=== PATIENT | male | born 1945 | race Caucasian/White ===

== ENCOUNTER 2022-06-14 15:56 | Inpatient (IN) | payer MEDICARE, OTHER ==
[~2022-06-14] VITALS: Ht 167.6 cm; Wt 69.4 kg
--- NOTE | 2022-06-14 16:15 | NUR ---
BIBRA 860 FROM HOME C/O GENERALIZED ABDOMINAL PAIN AND DIARRHEA X 2 WEEKS
--- NOTE | 2022-06-14 17:02 | NUR ---
ESTABLISHED IV LINE 20 G LEFT AC
--- NOTE | 2022-06-14 17:03 | NUR ---
BLOOD SAMPLE OBTAINED
[2022-06-14 17:09] LABS: BASOPHILS % (AUTO) 0.7 % (0.0-2.0); EOSINOPHILS % (AUTO) 0.2 % (0.0-6.0); HEMATOCRIT 43 % (39-51); HEMOGLOBIN 14.1 g/dL (13.5-17.5); LYMPHOCYTES # (AUTO) 1.1 K/uL (0.8-4.8); LYMPHOCYTES % (AUTO) 22.7 % (20.0-44.0); MEAN CORPUSCULAR HGB CONC 33 g/dl (31.0-36.0); MEAN CORPUSCULAR VOLUME 82 fL (80-96); MONOCYTES # (AUTO) 0.6 K/uL (0.1-1.30); MONOCYTES % (AUTO) 11.7 % (2.0-12.0); NEUTROPHILS # (AUTO) 3.1 K/uL (1.8-8.9); NEUTROPHILS % (AUTO) 64.7 % (43.0-81.0); PLATELET COUNT (AUTO) 268 K/uL (150-450); RED BLOOD CELL COUNT(AUTO) 5.19 MIL/uL (4.5-6.0); WHITE BLOOD COUNT (AUTO) 4.8 K/uL (4.3-11.0)
[2022-06-14 17:25] LABS: POTASSIUM 3.9 mmol/L (3.5-5.1)
[2022-06-14 17:29] LABS: ALBUMIN 2.2 g/dL (3.4-5.0); BILIRUBIN,DIRECT 0.2 mg/dL (0.0-0.2); BILIRUBIN,TOTAL 0.7 mg/dL (0.2-1.0); TOTAL PROTEIN, SERUM 6.1 g/dL (6.4-8.2)
[2022-06-14] MEDS ORDERED: IV NS 0.9% 1,000 ML BAG IV ONE (17:30)
[2022-06-14] MEDS ORDERED: IV NS 0.9% 250 ML IV ONE (17:33)
[2022-06-14] MEDS ORDERED: IOHEXOL-300 100 ML VIAL IV ONE (17:33)
[2022-06-14] MEDS ORDERED: ACETAMINOPHEN ES 500 MG TABLET ONE (17:40)
[2022-06-14] MEDS ORDERED: ACETAMINOPHEN ES 500 MG TABLET PO ONE (18:00)
--- NOTE | 2022-06-14 18:23 | NUR ---
SHARMIN [phone] SON
--- NOTE | 2022-06-14 18:42 | NUR ---
COVID SWAB TAKEN SENT TO LAB
--- NOTE | 2022-06-14 19:43 | NUR ---
URINE COLLECTED AND SENT TO LAB
[2022-06-14] MEDS ORDERED: ACETAMINOPHEN 325 MG TABLET PO PRN (20:00)
[2022-06-14] MEDS ORDERED: ENOXAPARIN SODIUM 40 MG/0.4 ML DISP.SYRIN SQ ONE (20:05)
[2022-06-14] MEDS ORDERED: DOCUSATE SODIUM 100 MG CAPSULE PO ONE (20:05)
[2022-06-14] MEDS: DOCUSATE SODIUM 100 MG CAPSULE PO SCH (20:13)
[2022-06-14] MEDS: ENOXAPARIN SODIUM 40 MG/0.4 ML DISP.SYRIN SQ SCH (20:15)
--- NOTE | 2022-06-14 20:23 | NUR ---
REPORT GIVEN TO NAZANIN CARTER ROOM 307-2 FOR JIMMIE
[2022-06-14 20:30] VITALS: BP 101/62
--- NOTE | 2022-06-14 20:30 | NUR ---
PT TRANSFERRED TO [facility]-2 VIA ACLS PROTOCOL. VSS.
--- NOTE | 2022-06-14 20:48 | NUR ---
RN NOTES; RECEIVED PT FROM ER WITH REYES ABARCA MOSOTHO SPEAKING WITH A LITTLE STATELESS.RAFFI WELL ON RM AIR SATING 99%,NO SIGN SOB/DISTRESS NOTED,NO COMPLAINED OF PAIN/DISCOMFORT AT THIS TIME,IV ACCES ON LAC 20G INTACT AND PATENT,AMBULATORY WITH STEADY GAIT,PT WAS ORIENT THE RM AND VERBALLY RESPONSIVE,SAFETY MEASURED IN PLACE,BED LOW AND LOCKED POSITION,CALL LIGHT WITHIN REACH,WILL CONTINUE TO MONITOR.
[2022-06-14 20:53] LABS: BILIRUBIN,URINE NEGATIVE (NEGATIVE); COLOR,URINE YELLOW (YELLOW); LEUKOCYTE ESTERASE ,URINE NEGATIVE (NEGATIVE); NITRITE, URINE NEGATIVE (NEGATIVE); PROTEIN,URINE NEGATIVE (NEGATIVE); UGLUCOSE NEGATIVE (NEGATIVE)
[2022-06-14 20:58] LABS: BACTERIA,URINE None seen /HPF (None Seen); RBC,URINE 0-2 /HPF (0-2); SQUAMOUS EPITHELIAL CELL,UR 0-2 /HPF (None Seen); WBC,URINE 0-2 /HPF (0-3)
[2022-06-14 21:30] LABS: PROSTATE SPECIFIC ANTIGEN SCR 0.97 ng/mL (0.00-4.00)
[2022-06-14] MEDS: IV NS 0.9% 1,000 ML IV PRN (21:46)
[2022-06-14] MEDS: ONDANSETRON HCL/PF 4 MG/2 ML VIAL IVP PRN (22:17)
--- NOTE | 2022-06-15 06:17 | NUR ---
RN CLOSING NOTES; PATIENT IN BED AWAKED AOX3 MARTINIQUAIS SPEAKING WITH A LITTLE SAMI.ABLE TO MAKE NEEDS KNOWN,RAFFI WELL ON RM AIR SATING 98%,NO SIGN SOB/DISTRESS NOTED,NO COMPLAINED OF PAIN/DISCOMFORT DURING SHIFT,DUE MEDS GIVEN ORDER,ALL NEEDS ATTENDED,IV ACCES ON LAC 20G WITH NS 75ML/HR INFUSING WELL,AMBULATORY WITH STEADY GAIT,SAFETY MEASURED IN PLACE,BED LOW AND LOCKED POSITION,CALL LIGHT WITHIN REACH,WILL ENDORSED TO NEXT SHIFT.
[2022-06-15 07:00] VITALS: BP 118/85
[2022-06-15 07:26] LABS: BASOPHILS % (AUTO) 0.3 % (0.0-2.0); EOSINOPHILS % (AUTO) 0.2 % (0.0-6.0); HEMATOCRIT 39 % (39-51); HEMOGLOBIN 12.9 g/dL (13.5-17.5); LYMPHOCYTES % (AUTO) 22.7 % (20.0-44.0); MEAN CORPUSCULAR HGB CONC 33 g/dl (31.0-36.0); MEAN CORPUSCULAR VOLUME 83 fL (80-96); MONOCYTES # (AUTO) 0.8 K/uL (0.1-1.30); NEUTROPHILS # (AUTO) 2.7 K/uL (1.8-8.9); NEUTROPHILS % (AUTO) 59.8 % (43.0-81.0); PLATELET COUNT (AUTO) 261 K/uL (150-450); RED BLOOD CELL COUNT(AUTO) 4.68 MIL/uL (4.5-6.0); WHITE BLOOD COUNT (AUTO) 4.6 K/uL (4.3-11.0)
--- NOTE | 2022-06-15 07:27 | NUR ---
MS RN OPENING NOTE RECEIVED PT AWAKE AND RESTING IN BED. PT IS A/O X4, ABLE TO MAKE NEEDS KNOWN. PT ON ROOM AIR, TOLERATING WELL. NO SOB NOTED. NOT IN ANY SIGN OF RESPIRATORY DISTRESS. IV ACCESS ON LAC G#20 INTACT AND PATENT WITH NS INFUSING AT 75ML/HR. SAFETY MEASURES IN PLACE: BED IN LOWEST AND LOCKED POSITION, SIDE RAILS UPX2, AND CALL LIGHT WITHIN REACH. WILL CONTINUE PT WITH PLAN OF CARE.
[2022-06-15 08:07] LABS: CALCIUM, SERUM 7.6 mg/dL (8.5-10.1); CREATININE 0.9 mg/dL (0.6-1.3); MAGNESIUM 2.1 mg/dL (1.8-2.4); PHOSPHORUS 3.5 mg/dL (2.5-4.9); POTASSIUM 3.5 mmol/L (3.5-5.1)
[2022-06-15] MEDS: PANTOPRAZOLE 40 MG TABLET.DR PO SCH (08:23)
[2022-06-15] MEDS: DOCUSATE SODIUM 100 MG CAPSULE PO SCH ×2 (09:06→17:27)
[2022-06-15] MEDS ORDERED: PEG 3350/NA SULF,BICARB,CL/KCL 4,000 ML BOTTLE PO ONE (11:00)
[2022-06-15] MEDS: ONDANSETRON HCL/PF 4 MG/2 ML VIAL IVP PRN ×2 (12:12→21:23)
--- NOTE | 2022-06-15 12:14 | NUR ---
RN NOTE PT C/O NAUSEA AND VOMITING. PT NOTED WITH X1 VOMITING AND REQUESTED FOR MEDICATION. ZOFRAN 4MG IVP ADMINISTERED ORDERED Q6HRS PRN FOR NAUSEA AND VOMITING. WILL MONITOR AND REASSESS PT.
[2022-06-15] MEDS ORDERED: TAMS-12 PO (13:26)
[2022-06-15] MEDS ORDERED: METO25TA4 PO (13:26)
[2022-06-15] MEDS ORDERED: OMEP1CAP25 PO (13:26)
[2022-06-15] MEDS ORDERED: ROSU10TA29 PO (13:26)
[2022-06-15] MEDS ORDERED: LORA-258 PO (13:26)
[2022-06-15] MEDS ORDERED: DICL100G34 TP (13:26)
[2022-06-15] MEDS ORDERED: DULO20CA19 PO (13:26)
[2022-06-15] MEDS ORDERED: OMEG-72 PO (13:26)
[2022-06-15] MEDS ORDERED: GABA300C PO (13:26)
[2022-06-15] MEDS ORDERED: AMLO1CAP6 PO (13:26)
[2022-06-15] MEDS ORDERED: CELE-85 PO (13:26)
[2022-06-15] MEDS ORDERED: TEMA30CA PO (13:26)
[2022-06-15] MEDS ORDERED: RIVA1PAT11 TP (13:26)
[2022-06-15] MEDS ORDERED: DONE23TA3 PO (13:26)
[2022-06-15] MEDS ORDERED: MECL-173 PO (13:27)
--- NOTE | 2022-06-15 13:30 | NUR ---
SS note: Per family's request SW provided pt. and family with advanced healthcare directive and mobile notary number and explained how to complete . Pt. and family are agreeable.
[2022-06-15] MEDS ORDERED: DICLOFENAC TOPICAL 100 GM TUBE TP PRN (14:00)
[2022-06-15] MEDS ORDERED: LORAZEPAM 0.5 MG TABLET PO PRN (14:00)
[2022-06-15] MEDS ORDERED: MECLIZINE HCL 25 MG TABLET PO PRN (14:00)
[2022-06-15] MEDS ORDERED: TEMAZEPAM 15 MG CAPSULE PO PRN (14:30)
[2022-06-15 15:14] LABS: BAND % (MANUAL) 14 % (0.0-5.0); LYMPHOCYTES % (MANUAL) 19 % (16-48); MONOCYTES % (MANUAL) 14 % (0-11.0); NEUTROPHILS % (MANUAL) 53 (42-76)
[2022-06-15] MEDS: IV NS 0.9% 1,000 ML IV PRN (15:42)
[2022-06-15 17:00] VITALS: BP 132/73
[2022-06-15] MEDS ORDERED: Medication Not On Formulary EA (Omega-3 Acid Ethyl Esters 1 GM) PO SCH (17:00)
[2022-06-15] MEDS: GABAPENTIN 300 MG CAPSULE PO SCH (17:27)
--- NOTE | 2022-06-15 18:50 | NUR ---
MS RN CLOSING NOTE PT AWAKE AND RESTING IN BED. PT IS A/O X4, ABLE TO MAKE NEEDS KNOWN. PT ON ROOM AIR, TOLERATING WELL. NO SOB NOTED. NOT IN ANY SIGN OF RESPIRATORY DISTRESS. IV ACCESS ON LAC G#20 INTACT AND PATENT WITH NS INFUSING AT 75ML/HR. ALL NEEDS ATTENDED. KEPT CLEAN AND COMFORTABLE AT ALL TIMES. SAFETY MEASURES IN PLACE: BED IN LOWEST AND LOCKED POSITION, SIDE RAILS UPX2, AND CALL LIGHT WITHIN REACH. WILL ENDORSE TO EQUIPMENT SERVICE ASSOCIATE NURSE FOR JIMMIE.
--- NOTE | 2022-06-15 19:55 | NUR ---
MS RN OPENING NOTE PATIENT AWAKE IN BED, ALERT/ORIENTED X 4, PT ABLE TO MAKE NEEDS KNOWN. PATIENT STABLE ON RA, NO S/S OF DISTRESS OR SOB NOTED, BREATHING EVEN AND UNLABORED. IV ACCESS ON LAC #20G INTACT AND INFUSING NS @ 75 ML/HR. PATIENT TO HAVE COLONOSCOPY/ENDOSCOPY IN AM, ENCOURAGED PATIENT TO CONTINUE DRINKING GROLYTELY, PER DAYSHIFT RN PATIENT HAD 2 BOWEL MOVEMENTS ALREADY. PATIENT TO BE NPO POST MIDNIGHT FOR COLONOSCOPY AND ENDOSCOPY TOMORROW. PATIENT AMBULATORY WITH BRP. SAFETY MEASURES IN PLACE: CALL LIGHT WITHIN REACH, SIDE RAILS UP X 2, BED LOCKED IN LOWEST POSITION, HOB ELEVATED. WILL CONTINUE TO MONITOR PATIENT
[2022-06-15 20:26] VITALS: BP 138/73
--- NOTE | 2022-06-15 20:56 | NUR ---
MS RN NOTE USED ACUTE COORDINATOR (ID: [id number]) TO SPEAK TO PATIENT. EXPLAINED THAT HE NEEDS TO DRINK MUCH THE GOLYTELY POSSIBLE BEFORE MIDNIGHT UNTIL BOWELS CLEAR, PER PATIENT ALREADY HAVING CLEAR BOWELS, HASN'T EATEN ANYTHING BUT FLUIDS THE LAST COUPLE OF DAYS. PATIENT STATES HE WILL CONTINUE TO DRINK GOLYTELY MUCH POSSIBLE UNTIL MIDNIGHT BUT STATES HE HAS NAUSEA, OFFERED ZOFRAN. ALSO EXPLAINED TO PATIENT THAT HE MUST BE NPO POST MIDNIGHT. PATIENT VERBALIZED UNDERSTANDING. WILL CONTINUE TO MONITOR PATIENT
[2022-06-15] MEDS: ENOXAPARIN SODIUM 40 MG/0.4 ML DISP.SYRIN SQ SCH (21:00)
[2022-06-15] MEDS: ATORVASTATIN 40 MG TABLET PO SCH (21:23)
[2022-06-16 06:15] LABS: BASOPHILS % (AUTO) 0.1 % (0.0-2.0); EOSINOPHILS % (AUTO) 0.2 % (0.0-6.0); HEMATOCRIT 42 % (39-51); HEMOGLOBIN 13.9 g/dL (13.5-17.5); LYMPHOCYTES # (AUTO) 0.8 K/uL (0.8-4.8); LYMPHOCYTES % (AUTO) 18.7 % (20.0-44.0); MEAN CORPUSCULAR HGB CONC 33 g/dl (31.0-36.0); MEAN CORPUSCULAR VOLUME 82 fL (80-96); MONOCYTES # (AUTO) 0.5 K/uL (0.1-1.30); NEUTROPHILS # (AUTO) 3.1 K/uL (1.8-8.9); PLATELET COUNT (AUTO) 295 K/uL (150-450); RED BLOOD CELL COUNT(AUTO) 5.12 MIL/uL (4.5-6.0); WHITE BLOOD COUNT (AUTO) 4.5 K/uL (4.3-11.0)
[2022-06-16 06:38] LABS: CALCIUM, SERUM 7.9 mg/dL (8.5-10.1); CREATININE 0.8 mg/dL (0.6-1.3); MAGNESIUM 2.3 mg/dL (1.8-2.4); PHOSPHORUS 3.2 mg/dL (2.5-4.9)
--- NOTE | 2022-06-16 06:43 | NUR ---
MS RN CLOSING NOTE PATIENT SLEEPING IN BED, ALERT/ORIENTED X 4, PT PRIMARILY NORTH KOREAN SPEAKING PATIENT STABLE ON RA, NO S/S OF DISTRESS OR SOB NOTED, BREATHING EVEN AND UNLABORED. IV ACCESS ON LAC #20G INTACT AND INFUSING NS @ 75 ML/HR. PATIENT TO HAVE COLONOSCOPY/ENDOSCOPY TODAY, PATIENT KEPT NPO POST MIDNIGHT. PATIENT DRANK MOST OF GOLYTELY, STATES HE IS HAVING WATERY, CLEAR BOWEL MOVEMENTS "LIKE WATER". NO SIGNIFICANT CHANGES THIS SHIFT, MEDICATIONS GIVEN ORDERED, PT NEEDS MET THROUGHOUT SHIFT. PATIENT AMBULATORY WITH BRP. SAFETY MEASURES IN PLACE: CALL LIGHT WITHIN REACH, SIDE RAILS UP X 2, BED LOCKED IN LOWEST POSITION, HOB ELEVATED. WILL ENDORSE TO DAYSHIFT RN FOR CONTINUITY OF CARE
[2022-06-16] MEDS: PANTOPRAZOLE 40 MG TABLET.DR PO SCH ×2 (07:30→08:34)
--- NOTE | 2022-06-16 07:35 | NUR ---
MS RN OPENING NOTE RECEIVED PT AWAKE AND RESTING IN BED. PT IS A/O X4, CITIZEN OF [place] AND [place] SPEAKING , ABLE TO MAKE NEEDS KNOWN. PT ON ROOM AIR, TOLERATING WELL. NO SOB NOTED. NOT IN ANY SIGN OF RESPIRATORY DISTRESS. IV ACCESS ON LAC G#20 INTACT AND PATENT WITH NS INFUSING AT 75ML/HR. SAFETY MEASURES IN PLACE: BED IN LOWEST AND LOCKED POSITION, SIDE RAILS UPX2, AND CALL LIGHT WITHIN REACH. WILL CONTINUE PT WITH PLAN OF CARE.
[2022-06-16 08:00] VITALS: BP 123/69
[2022-06-16] MEDS ORDERED: PANTOPRAZOLE 40 MG/PACK PACK PO SCH (09:00)
[2022-06-16] MEDS: AMLODIPINE BESYLATE 5 MG TABLET PO SCH ×2 (09:00→09:05)
[2022-06-16] MEDS: CELECOXIB 100 MG CAPSULE PO SCH ×2 (09:00→09:04)
[2022-06-16] MEDS: BENAZEPRIL HCL 20 MG TABLET PO SCH ×2 (09:00→09:05)
[2022-06-16] MEDS: GABAPENTIN 300 MG CAPSULE PO SCH ×3 (09:00→17:00)
[2022-06-16] MEDS: TAMSULOSIN 0.4 MG CAP.SR.24H PO SCH ×2 (09:00→09:02)
[2022-06-16] MEDS: DULOXETINE HCL 20 MG CAPSULE.DR PO SCH ×2 (09:00→09:03)
[2022-06-16] MEDS: METOPROLOL SUCCINATE 25 MG TAB.SR.24H PO SCH ×2 (09:00→09:06)
[2022-06-16] MEDS: DOCUSATE SODIUM 100 MG CAPSULE PO SCH ×3 (09:00→17:00)
[2022-06-16] MEDS: RIVASTIGMINE TARTRATE 4.6 MG PATCH.TD24 TD SCH (09:36)
[2022-06-16] MEDS: POTASSIUM CL. PREMIX PERIPHER. 50 ML IV SCH ×4 (10:41→14:06)
[2022-06-16] MEDS: IV NS 0.9% 1,000 ML IV PRN (11:28)
[2022-06-16 16:14] VITALS: BP 136/74
--- NOTE | 2022-06-16 18:30 | NUR ---
MS RN CLOSING NOTE PT AWAKE AND RESTING IN BED. PT IS A/O X4, GERMAN SPEAKING , ABLE TO MAKE NEEDS KNOWN. PT ON ROOM AIR, TOLERATING WELL. NO SOB NOTED. NOT IN ANY SIGN OF RESPIRATORY DISTRESS. IV ACCESS ON LAC G#20 INTACT AND PATENT WITH NS INFUSING AT 75ML/HR. NOTED WITH LOW POTASSIUM AND REPLACED WITH 40 MEQ VIA IV , NPO TIL PROCEDURE WAS DONE , PATIENT WAS TERRITORY SALES PROFESSIONAL AROUND 1730 FOR COLONOSCOPY AND ENDOSCOPY , STILL AT SURGERY AT THIS TIME SAFETY MEASURES IN PLACE: BED IN LOWEST AND LOCKED POSITION, SIDE RAILS UPX2, AND CALL LIGHT WITHIN REACH. WILL ENDORSED TO NEXT SHIFT
[2022-06-16] MEDS ORDERED: ONDANSETRON HCL/PF 4 MG/2 ML VIAL ONE (18:31)
--- NOTE | 2022-06-16 19:45 | NUR ---
MS RN OPENING NOTE PATIENT ARRIVED FROM COLONOSCOPY AND ENDOSCOPY AT ABOUT 1900. PATIENT AWAKE IN BED WITH FAMILY AT BEDSIDE, ALERT/ORIENTED X 4, PT JAMAICAN SPEAKING. PATIENT STABLE ON 2 LPM OF O2 VIA NASAL CANNULA, NO S/S OF DISTRESS OR SOB NOTED, BREATHING EVEN AND UNLABORED. PATIENT WITH NAUSEA AND SOME VOMITING BUT WAS GIVEN ZOFRAN IN PACU AT 1835. PATIENT ABLE TO AMBULATE TO BATHROOM. IV ACCESS ON LEFT WRIST #22G INTACT AND INFUSING NS @ 75 ML/HR. FAMILY WAS REQUESTING TO SPEAK TO DR. HEREDIA BUT NOT PRESENT ON FLOOR, BUSINESS CARD GIVEN TO FAMILY. SAFETY MEASURES IN PLACE: CALL LIGHT WITHIN REACH, SIDE RAILS UP X 2, BED LOCKED IN LOWEST POSITION, HOB ELEVATED. BED ALARM ON. WILL CONTINUE TO MONITOR PATIENT
[2022-06-16] MEDS ORDERED: ANESTHESIA TRAY IN PYXIS 1 EA TRAY MC ONE (19:46)
--- NOTE | 2022-06-16 19:47 | NUR ---
MS RN NOTE PER KEISHA BOSCH, KEEP PATIENT ON CLEAR LIQUIDS AND ORDER ECHO. DR. CORDERO ALSO CALLED TO REQUEST FACESHEET BE SENT TO HIM, STATED PATIENT WILL NEED SURGERY BUT UNSURE WHEN IT WILL BE. FACESHEET SENT TO DR. CORDERO
[2022-06-16 20:00] VITALS: BP 172/89
[2022-06-16 21:00] VITALS: BP 134/72
--- NOTE | 2022-06-16 21:10 | NUR ---
MS RN NOTE REASSESSED PATIENT'S BP, BP NOW 134/72, HR: 103. WILL CONTINUE TO MONITOR
[2022-06-16] MEDS: ATORVASTATIN 40 MG TABLET PO SCH (21:42)
[2022-06-16] MEDS: DONEPEZIL 5 MG TABLET PO SCH (21:43)
[2022-06-16] MEDS: ENOXAPARIN SODIUM 40 MG/0.4 ML DISP.SYRIN SQ SCH (21:56)
[2022-06-17] MEDS: IV NS 0.9% 1,000 ML IV PRN (02:20)
[2022-06-17] MEDS: ONDANSETRON HCL/PF 4 MG/2 ML VIAL IVP PRN (02:20)
--- NOTE | 2022-06-17 05:56 | NUR ---
MS RN NOTE PATIENT C/O 10/04 ABDOMINAL PAIN, ONLY HAS ORDER FOR TYLENOL. NOTIFIED COMMUNITY ORGANIZER MD FOR STRONGER PAIN MEDICATION. AWAITING ORDERS
[2022-06-17 06:10] LABS: BASOPHILS % (AUTO) 0.1 % (0.0-2.0); EOSINOPHILS % (AUTO) 0.3 % (0.0-6.0); HEMATOCRIT 42 % (39-51); LYMPHOCYTES % (AUTO) 18.7 % (20.0-44.0); MEAN CORPUSCULAR HGB CONC 33 g/dl (31.0-36.0); MEAN CORPUSCULAR VOLUME 82 fL (80-96); MONOCYTES # (AUTO) 0.8 K/uL (0.1-1.30); MONOCYTES % (AUTO) 15.5 % (2.0-12.0); NEUTROPHILS # (AUTO) 3.6 K/uL (1.8-8.9); NEUTROPHILS % (AUTO) 65.4 % (43.0-81.0); PLATELET COUNT (AUTO) 334 K/uL (150-450); WHITE BLOOD COUNT (AUTO) 5.5 K/uL (4.3-11.0)
[2022-06-17 06:23] LABS: CALCIUM, SERUM 7.4 mg/dL (8.5-10.1); CREATININE 0.8 mg/dL (0.6-1.3); MAGNESIUM 2.4 mg/dL (1.8-2.4); PHOSPHORUS 2.7 mg/dL (2.5-4.9); POTASSIUM 3.3 mmol/L (3.5-5.1)
[2022-06-17 06:37] LABS: FERRITIN 234 ng/mL (8-388)
--- NOTE | 2022-06-17 06:56 | NUR ---
MS RN CLOSING NOTES PATIENT AWAKE IN BED, ALERT/ORIENTED X 4, PT EGYPTIAN SPEAKING. PATIENT STABLE ON RA, NO S/S OF DISTRESS OR SOB NOTED, BREATHING EVEN AND UNLABORED. PATIENT C/O OF ABDOMINAL PAIN, NOTIFIED TERRITORY ACCOUNT EXECUTIVE MD FOR PAIN MEDICATION, AWAITING MD ORDER, WILL ENDORSE TO DAYSHIFT RN. PATIENT ABLE TO AMBULATE TO BATHROOM. IV ACCESS ON LEFT WRIST #22G INTACT AND INFUSING NS @ 75 ML/HR. PATIENT C/O OF NAUSEA AND SOME VOMITING THIS SHIFT, ZOFRAN GIVEN. MEDICATIONS GIVEN ORDERED, PT NEEDS MET THROUGHOUT SHIFT. SAFETY MEASURES IN PLACE: CALL LIGHT WITHIN REACH, SIDE RAILS UP X 2, BED LOCKED IN LOWEST POSITION, HOB ELEVATED. WILL ENDORSE TO DAYSHIFT RN FOR CONTINUITY OF CARE
--- NOTE | 2022-06-17 07:00 | NUR ---
MS RN OPENING NOTES: RECEIVED PATIENT IN BED, AWAKE BELIZEAN SPEAKING BUT ABLE TO UNDERSTAND TANZANIAN. PT ALERT AND ORIENTED X 4 ABLE TO MAKE NEEDS KNOWN. ON O2 INHALATION @ 2LPM VIA NC STAND BY. PT COMPLAINING OF GAS PAIN, WAITING FOR DR'S ORDER. IV ACCESS ON L WRIST GAUGE 22 PATENT, INTACT AND INFUSING NS @75ML/HR. SAFETY MEASURES MAINTAINED: BED LOCKED AND IN LOWEST POSITION, SIDE RAILS UP X 2 AND WILL MONITOR PT ACCORDINGLY.
[2022-06-17 07:38] LABS: IRON, SERUM 28 ug/dl (50-175); TOTAL IRON BINDING CAPACITY 135 ug/dl (250-450)
[2022-06-17] MEDS: PANTOPRAZOLE 40 MG TABLET.DR PO SCH (07:40)
[2022-06-17 08:00] VITALS: BP 156/84
[2022-06-17] MEDS: GABAPENTIN 300 MG CAPSULE PO SCH ×2 (08:20→16:35)
[2022-06-17] MEDS: TAMSULOSIN 0.4 MG CAP.SR.24H PO SCH (08:20)
[2022-06-17] MEDS: CELECOXIB 100 MG CAPSULE PO SCH (08:20)
[2022-06-17] MEDS: DULOXETINE HCL 20 MG CAPSULE.DR PO SCH (08:21)
[2022-06-17] MEDS: DOCUSATE SODIUM 100 MG CAPSULE PO SCH ×2 (08:21→16:35)
[2022-06-17] MEDS: BENAZEPRIL HCL 20 MG TABLET PO SCH (08:21)
[2022-06-17] MEDS: METOPROLOL SUCCINATE 25 MG TAB.SR.24H PO SCH (08:22)
[2022-06-17] MEDS: AMLODIPINE BESYLATE 5 MG TABLET PO SCH (08:22)
[2022-06-17] MEDS: RIVASTIGMINE TARTRATE 4.6 MG PATCH.TD24 TD SCH (08:22)
[2022-06-17] MEDS: POTASSIUM CL. PREMIX PERIPHER. 50 ML IV SCH ×4 (09:06→12:36)
[2022-06-17 09:38] LABS: THYROID STIMULATING HORMONE 1.27 uIU/mL (0.358-3.74)
[2022-06-17] MEDS ORDERED: PEG 3350/NA SULF,BICARB,CL/KCL 4,000 ML BOTTLE PO ONE (11:00)
--- NOTE | 2022-06-17 11:15 | NUR ---
RN NOTES: PLACING NG TUBE UNSUCCEFUL, INFORMED DR CORDERO AND DANITZA. WAITING FOR DR CORDERO IF WE CAN SWITCH GOLYTELY TO MAG CITRATE. WILL FOLLOW UP. PATIENT CURRENTLY ON NPO.
[2022-06-17 11:56] LABS: BAND % (MANUAL) 3 % (0.0-5.0); BASOPHILS % (MANUAL) 0 % (0.0-2.0); EOSINOPHILS % (MANUAL) 0 % (0-4); LYMPHOCYTES % (MANUAL) 19 % (16-48); MONOCYTES % (MANUAL) 14 % (0-11.0); NEUTROPHILS % (MANUAL) 64 (42-76)
--- NOTE | 2022-06-17 14:20 | NUR ---
RN NOTES: INSERTED NGTUBE MONTSERRATIAN 16, PATENT,INTACT AND NOTED WITH BROWNISH COLORED OUTPUT. ORDERED STAT CXR FOR PLACEMENT.
--- NOTE | 2022-06-17 15:39 | NUR ---
RN NOTES: RECEIVED A CALL FROM RN AIDE JONAS SCHEDULED FOR POSSIBLE EXPLORATORY LAPAROTOMY, POSSIBLE BOWEL RESECTION, POSSIBLE COLOSTOMY AND POSSIBLE ANASTOMOSIS, NEED TO HAVE CONSENTS SIGNED.
[2022-06-17 15:57] VITALS: BP 81/50
--- NOTE | 2022-06-17 16:00 | NUR ---
RN NOTES: PER DR BOSCH. NG TUBE ATTACH TO INTERMITTENT SUCTION @40.
[2022-06-17] MEDS ORDERED: ANESTHESIA TRAY IN PYXIS 1 EA TRAY MC ONE (16:50)
[2022-06-17] MEDS ORDERED: MIDAZOLAM HCL 2 MG/2ML VIAL ONE (17:37)
[2022-06-17] MEDS ORDERED: FENTANYL PF 100MCG/2ML AMPUL ONE (17:37)
--- NOTE | 2022-06-17 18:36 | NUR ---
RN NOTES: SEEN AND EXAMINED BY DR CORDERO AND SURGERY WILL BE POSTPONED TILL 2100. FAMILY AT BED SIDE. WILL MAINTAIN PT ON NPO.
--- NOTE | 2022-06-17 18:58 | NUR ---
MS RN CLOSING NOTES: PT ALERT AND ORINETED X 4 MONGOLIAN SPEAKING, ABLE TO UNDERSTAND LITTLE SINHALA. PT HAS NO SOB OR CARDIAC DISTRESS NOTED. DENIES DISCOMFORT AT THIS TIME. ON O2 INHALATION @ 2LPM VIA NC. NG TUBE PATENT, INTACT AND SECURED, ON INTERMITTENT SUCTION/VACUUM DRAINING DARK BROWNISH COLORED DISCHARGE. IV ACCESS ON LFA GAUGE 22 PATENT, INTACT AND RUNNING IV FLUIDS NS @75ML/HR. SAFETY MEASURES MAINTAINED: BED LOCKED AND IN LOWEST POSITION, SIDE RAILS UP X 2 . CALL LIGHT IN EASY REACH FOR HELP. WILL MONITOR PT ACCORDINGLY. ENDORSED TO HUMID SYSTEM OPERATOR NURSE FOR JIMMIE.
--- NOTE | 2022-06-17 19:35 | NUR ---
MS RN OPENING NOTES: RECEIVED PATIENT ALERT AND ORIENTED X 4 TUVALUAN SPEAKING, ABLE TO UNDERSTAND LITTLE CENTRAL AFRICAN. PATIENT HAS NO SOB OR CARDIAC DISTRESS NOTED. DENIES DISCOMFORT AT THIS TIME. ON O2 INHALATION @ 2LPM VIA NC. NG TUBE PATENT, INTACT AND SECURED, ON INTERMITTENT SUCTION/VACUUM DRAINING DARK BROWNISH COLORED DISCHARGE. IV ACCESS ON LEFT FORE ARM GAUGE #22 PATENT, INTACT AND RUNNING IV FLUIDS NS @75ML/HR. SAFETY MEASURES IN PLACED: BED LOCKED AND IN LOWEST POSITION, SIDE RAILS UP X 2 . BEDSIDE AND CALL LIGHT IN EASY REACH FOR HELP OF PATIENT.
[2022-06-17 20:00] VITALS: BP 99/63
[2022-06-17] MEDS: ENOXAPARIN SODIUM 40 MG/0.4 ML DISP.SYRIN SQ SCH (21:00)
--- NOTE | 2022-06-17 21:12 | NUR ---
RN NOTES ENOXAPARIN ON HOLD FOR SURGERY TOMORROW 06/18/22 @0750
[2022-06-17] MEDS: ATORVASTATIN 40 MG TABLET PO SCH (21:34)
[2022-06-17] MEDS: DONEPEZIL 5 MG TABLET PO SCH (21:34)
--- NOTE | 2022-06-17 21:34 | NUR ---
RN NOTE HOLD PO MEDICATIONS DONEPEZIL AND ATORVASTATIN. PATIENT IS NPO FOR SURGERY TOMORROW @0700.
[2022-06-18] VITALS (28 sets, daily range): BP systolic 81–140; BP diastolic 38–70
[2022-06-18 05:52] LABS: BASOPHILS % (AUTO) 0.1 % (0.0-2.0); EOSINOPHILS % (AUTO) 0.3 % (0.0-6.0); HEMATOCRIT 41 % (39-51); HEMOGLOBIN 13.6 g/dL (13.5-17.5); LYMPHOCYTES # (AUTO) 1.1 K/uL (0.8-4.8); LYMPHOCYTES % (AUTO) 12.1 % (20.0-44.0); MEAN CORPUSCULAR HGB CONC 33 g/dl (31.0-36.0); MEAN CORPUSCULAR VOLUME 84 fL (80-96); MONOCYTES # (AUTO) 0.7 K/uL (0.1-1.30); MONOCYTES % (AUTO) 7.9 % (2.0-12.0); NEUTROPHILS % (AUTO) 79.6 % (43.0-81.0); PLATELET COUNT (AUTO) 356 K/uL (150-450); RED BLOOD CELL COUNT(AUTO) 4.95 MIL/uL (4.5-6.0); WHITE BLOOD COUNT (AUTO) 8.8 K/uL (4.3-11.0)
[2022-06-18 06:08] LABS: CALCIUM, SERUM 7.8 mg/dL (8.5-10.1); CARBON DIOXIDE 23 mmol/L (21-32); CHLORIDE 105 mmol/L (98-107); CREATININE 2.5 mg/dL (0.6-1.3); GLUCOSE 132 mg/dL (74-106); MAGNESIUM 2.6 mg/dL (1.8-2.4); PHOSPHORUS 4.6 mg/dL (2.5-4.9); POTASSIUM 4.3 mmol/L (3.5-5.1); SODIUM SERUM 139 mmol/L (136-145); UREA NITROGEN, BLOOD 39 mg/dL (7-18)
[2022-06-18] MEDS ORDERED: ANESTHESIA TRAY IN PYXIS 1 EA TRAY MC ONE (06:31)
--- NOTE | 2022-06-18 06:38 | NUR ---
RN NOTE PATIENT LEFT UNIT FOR SURGERY IN A STABLE CONDITION. NO SOB, NOT IN DISTRESS NOTED. ALL CONSENT IS SIGNED.
[2022-06-18] MEDS ORDERED: IV NS 0.9% 1,000 ML IV PRN (07:14)
[2022-06-18] MEDS ORDERED: FENTANYL PF 250MCG/5ML AMPUL ONE (07:14)
[2022-06-18] MEDS: PANTOPRAZOLE 40 MG TABLET.DR PO SCH (07:30)
--- NOTE | 2022-06-18 07:30 | NUR ---
RN MS NOTES PT CURRENTLY IN O.R. FOR EXLAP, POSSIBLE BOWEL RESECTION, POSSIBLE COLOSTOMY, POSSIBLE ANASTOMOSIS BY DR. CORDERO.
[2022-06-18] MEDS ORDERED: ALBUMIN 5% 250 ML IV ONE ×2 (07:45)
[2022-06-18] MEDS ORDERED: BUPIVACAINE MPF 0.5% W/EPI INJ 30 ML VIAL ONE (08:54)
[2022-06-18] MEDS ORDERED: LIDOCAINE 1% INJ 50 ML MDV IJ ONE (08:55)
[2022-06-18] MEDS ORDERED: LIDOCAINE 5% OINT 35.44 GM TUBE ONE (08:55)
[2022-06-18] MEDS: AMLODIPINE BESYLATE 5 MG TABLET PO SCH (09:00)
[2022-06-18] MEDS: TAMSULOSIN 0.4 MG CAP.SR.24H PO SCH (09:00)
[2022-06-18] MEDS: METOPROLOL SUCCINATE 25 MG TAB.SR.24H PO SCH (09:00)
[2022-06-18] MEDS: FERROUS SULFATE (325 MG) 325 MG/TAB TABLET PO SCH ×2 (09:00→17:00)
[2022-06-18] MEDS: DOCUSATE SODIUM 100 MG CAPSULE PO SCH ×2 (09:00→17:00)
[2022-06-18] MEDS: GABAPENTIN 300 MG CAPSULE PO SCH ×2 (09:00→17:00)
[2022-06-18] MEDS: BENAZEPRIL HCL 20 MG TABLET PO SCH (09:00)
[2022-06-18] MEDS: DULOXETINE HCL 20 MG CAPSULE.DR PO SCH (09:00)
[2022-06-18] MEDS: RIVASTIGMINE TARTRATE 4.6 MG PATCH.TD24 TD SCH (09:00)
[2022-06-18] MEDS: CELECOXIB 100 MG CAPSULE PO SCH (09:00)
--- NOTE | 2022-06-18 09:00 | NUR ---
RN MS NOTES ALL MEDS NOT ADMINISTERED, PT STILL AT THE O.R.
[2022-06-18] MEDS ORDERED: BACITRACIN ZINC OINT PACKET 1 EA PACKET TP ONE (09:46)
--- NOTE | 2022-06-18 10:15 | NUR ---
RECEIVED PATIENT FROM OR, ACCOMPANIED BY 2 MINI LAB OPERATOR AND CAR MANAGER. PATIENT IS ON ET TUBE ON VENT SETTINGS ORDERED, TOLERATING WELL, NO SOB NOTED, NOT IN ANY DISTRESS. PATIENT RESPONSIVE TO LIGHT TOUCH. NO FACIAL GRIMACING NOTED. NOTED NGT ON RIGHT NARES HOOKED TO LOW INTERMITENT SUCTION NOTED WITH BROWN OUTPUT. NOTED DRESSING ON ABDOMINAL AREA S/P EXPLORATOMY AND LAPAROTOMY , DRESSING NOTED C/D/I. NOTED WENDY DRAIN ON RIGHT LOWER ABDOMEN WITH SEROSANGUINEOUS DRAINAGE. AND OSTOMY SITE WITH BAG ON LEFT LOWER ABDOMEN, NO STOOL NOTED. NOTED WITH F/C PATENT AND INTACT, DRAINING WITH CHUCHO COLORED URINE. RIGHT RADIAL ARTERIAL LINE, NOTED PATENT AND INTACT WITH BLOOD RETURN. RIGHT HAND PIV AND LEFT WRIST PIV NOTED PATENT AND INTACT, FLUSHES WELL. MONITOR PLACED NOTED ON SR READING HR 95. BILATERAL WRIST RESTRAINT PLACED. SAFETY MEASURES IN PLACED. CALL LIGHT WITHIN REACH. PLAN OF CARE CONTINUE.
[2022-06-18 11:07] LABS: IMMUNOGLOBULIN A, SERUM 154 mg/dL (61-437); IMMUNOGLOBULIN G, SERUM 811 mg/dL (603-1613); IMMUNOGLOBULIN M, SERUM 123 mg/dL (15-143)
--- NOTE | 2022-06-18 11:15 | NUR ---
RN NOTES ACCOMPANIED FAMILY MEMBERS TO ICU, DR. CORDERO SPOKE WITH FAMILY MEMBERS, BEDSIDE REPORT GIVEN TO LIVESTOCK JUDGING COACH GRACE CHANDLER, ALL BELONGINGS AND MEDICATIONS TRANSFERRED.
--- NOTE | 2022-06-18 11:24 | NUR ---
CHEST XRAY DONE.
[2022-06-18 11:29] LABS: CALCIUM, SERUM 6.7 mg/dL (8.5-10.1); CARBON DIOXIDE 19 mmol/L (21-32); CHLORIDE 109 mmol/L (98-107); CREATININE 1.9 mg/dL (0.6-1.3); GLUCOSE 147 mg/dL (74-106); SODIUM SERUM 137 mmol/L (136-145); UREA NITROGEN, BLOOD 39 mg/dL (7-18)
[2022-06-18 11:36] LABS: ALANINE AMINOTRANSFERASE 30 U/L (12-78); ALBUMIN 1.9 g/dL (3.4-5.0); ALKALINE PHOSPHATASE 80 U/L (46-116); ASPARTATE AMINOTRANSFERASE 45 U/L (15-37); TOTAL PROTEIN, SERUM 4.8 g/dL (6.4-8.2)
[2022-06-18 11:38] LABS: EOSINOPHILS % (AUTO) 0.5 % (0.0-6.0); HEMATOCRIT 39 % (39-51); HEMOGLOBIN 12.1 g/dL (13.5-17.5); LYMPHOCYTES # (AUTO) 1.2 K/uL (0.8-4.8); LYMPHOCYTES % (AUTO) 12.9 % (20.0-44.0); MEAN CORPUSCULAR HGB CONC 31 g/dl (31.0-36.0); MEAN CORPUSCULAR VOLUME 88 fL (80-96); MONOCYTES # (AUTO) 0.4 K/uL (0.1-1.30); MONOCYTES % (AUTO) 4.7 % (2.0-12.0); NEUTROPHILS # (AUTO) 7.9 K/uL (1.8-8.9); NEUTROPHILS % (AUTO) 81.9 % (43.0-81.0); PLATELET COUNT (AUTO) 294 K/uL (150-450); RED BLOOD CELL COUNT(AUTO) 4.42 MIL/uL (4.5-6.0); WHITE BLOOD COUNT (AUTO) 9.6 K/uL (4.3-11.0)
[2022-06-18] MEDS: IV LR 1000 ML 1,000 ML IV PRN ×2 (11:53→18:06)
[2022-06-18] MEDS: PROPOFOL 100 ML IV PRN ×2 (12:14→18:48)
[2022-06-18 12:33] LABS: BAND % (MANUAL) 20 % (0.0-5.0); EOSINOPHILS % (MANUAL) 1 % (0-4); LYMPHOCYTES % (MANUAL) 15 % (16-48); MONOCYTES % (MANUAL) 9 % (0-11.0); NEUTROPHILS % (MANUAL) 45 (42-76)
[2022-06-18] MEDS: CIPROFLOXACIN IV RTU 400 MG in PREMIX 1 EA IV SCH ×2 (13:31→23:00)
[2022-06-18] MEDS: METRONIDAZOLE 500MG/ NS 100ML 500 MG in PREMIX 1 EA IV SCH ×2 (13:48→21:00)
[2022-06-18] MEDS: MORPHINE SULFATE INJ 2 MG/ML DISP.SYRIN IV PRN (14:36)
[2022-06-18 16:07] LABS: *SPE A/G RATIO 0.7 (0.7-1.7); *SPE ALPHA-1-GLOBULIN 0.4 g/dL (0.0-0.4); *SPE ALPHA-2-GLOBULIN 0.9 g/dL (0.4-1.0); *SPE BETA GLOBULIN 0.7 g/dL (0.7-1.3); *SPE M-SPIKE Not Observed g/dL (Not Observed)
--- NOTE | 2022-06-18 16:30 | NUR ---
ABG DONE, MECHANICAL VENT CHANGED BY RT.
--- NOTE | 2022-06-18 16:59 | NUR ---
URINE COLLECTED, PLACED ON THE FRIDGE, CALLED LAB FOR VICE PRESIDENT PAYER
[2022-06-18 18:12] LABS: BILIRUBIN,URINE 1+ (NEGATIVE); COLOR,URINE YELLOW (YELLOW); LEUKOCYTE ESTERASE ,URINE NEGATIVE (NEGATIVE); NITRITE, URINE NEGATIVE (NEGATIVE); PH,URINE 5.5 (5.0-8.0); PROTEIN,URINE 1+ mg/dl (NEGATIVE); UGLUCOSE NEGATIVE (NEGATIVE)
[2022-06-18] MEDS ORDERED: NOREPINEPHRINE 8 MG in IV NS 0.9% 242 ML IV PRN (18:30)
[2022-06-18 19:26] LABS: BACTERIA,URINE None seen /HPF (None Seen); RBC,URINE 21-50 /HPF (0-2); SQUAMOUS EPITHELIAL CELL,UR 0-2 /HPF (None Seen); URINE AMORPHOUS URATE Few /HPF (None Seen); WBC,URINE 0-2 /HPF (0-3)
[2022-06-18] MEDS: ENOXAPARIN SODIUM 40 MG/0.4 ML DISP.SYRIN SQ SCH (21:01)
[2022-06-18] MEDS: DONEPEZIL 5 MG TABLET PO SCH (21:30)
[2022-06-18] MEDS: ATORVASTATIN 40 MG TABLET PO SCH (21:30)
[2022-06-19] VITALS (73 sets, daily range): BP systolic 98–137; BP diastolic 46–70
[2022-06-19] MEDS: PROPOFOL 100 ML IV PRN ×5 (00:30→20:31)
[2022-06-19] MEDS: IV LR 1000 ML 1,000 ML IV PRN ×3 (00:30→16:19)
[2022-06-19] MEDS: METRONIDAZOLE 500MG/ NS 100ML 500 MG in PREMIX 1 EA IV SCH ×3 (05:00→20:00)
[2022-06-19 05:06] LABS: BASOPHILS % (AUTO) 0.2 % (0.0-2.0); EOSINOPHILS % (AUTO) 0.2 % (0.0-6.0); HEMATOCRIT 33 % (39-51); HEMOGLOBIN 10.7 g/dL (13.5-17.5); LYMPHOCYTES # (AUTO) 1.1 K/uL (0.8-4.8); MEAN CORPUSCULAR HGB CONC 33 g/dl (31.0-36.0); MEAN CORPUSCULAR VOLUME 83 fL (80-96); MONOCYTES # (AUTO) 0.8 K/uL (0.1-1.30); MONOCYTES % (AUTO) 5.9 % (2.0-12.0); NEUTROPHILS # (AUTO) 11.6 K/uL (1.8-8.9); NEUTROPHILS % (AUTO) 85.7 % (43.0-81.0); PLATELET COUNT (AUTO) 254 K/uL (150-450); RED BLOOD CELL COUNT(AUTO) 3.91 MIL/uL (4.5-6.0); WHITE BLOOD COUNT (AUTO) 13.5 K/uL (4.3-11.0)
[2022-06-19 05:18] LABS: CARBON DIOXIDE 21 mmol/L (21-32); CHLORIDE 107 mmol/L (98-107); CREATININE 1.8 mg/dL (0.6-1.3); GLUCOSE 146 mg/dL (74-106); MAGNESIUM 2.5 mg/dL (1.8-2.4); PHOSPHORUS 3.7 mg/dL (2.5-4.9); POTASSIUM 3.2 mmol/L (3.5-5.1); SODIUM SERUM 139 mmol/L (136-145); UREA NITROGEN, BLOOD 40 mg/dL (7-18)
[2022-06-19] MEDS: PANTOPRAZOLE 40 MG VIAL IV SCH (08:55)
[2022-06-19] MEDS: POTASSIUM CL. PREMIX PERIPHER. 50 ML IV SCH ×4 (08:55→12:27)
[2022-06-19] MEDS: RIVASTIGMINE TARTRATE 4.6 MG PATCH.TD24 TD SCH (08:56)
[2022-06-19] MEDS: BENAZEPRIL HCL 20 MG TABLET PO SCH (09:00)
[2022-06-19] MEDS: METOPROLOL SUCCINATE 25 MG TAB.SR.24H PO SCH ×2 (09:00→10:58)
[2022-06-19] MEDS: AMLODIPINE BESYLATE 5 MG TABLET PO SCH (09:00)
[2022-06-19] MEDS: TAMSULOSIN 0.4 MG CAP.SR.24H PO SCH (10:57)
[2022-06-19] MEDS: CELECOXIB 100 MG CAPSULE PO SCH (10:57)
[2022-06-19] MEDS: FERROUS SULFATE (325 MG) 325 MG/TAB TABLET PO SCH ×2 (10:57→16:53)
[2022-06-19] MEDS: DULOXETINE HCL 20 MG CAPSULE.DR PO SCH (10:57)
[2022-06-19] MEDS: DOCUSATE SODIUM 100 MG CAPSULE PO SCH ×2 (10:58→16:53)
[2022-06-19] MEDS: GABAPENTIN 300 MG CAPSULE PO SCH ×2 (11:05→16:53)
--- NOTE | 2022-06-19 11:15 | NUR ---
WEAVER TIRE CORD AT THE BEDSIDE AND CHANGED VENT SETTINGS TO FI02 80%. KEISHA CHILD CARE CENTER ASSISTANT DIRECTOR AT BEDSIDE, PER KEISHA CHILD CARE CENTER ASSISTANT DIRECTOR HOLD ALL BP MEDICATIONS, NOTED AND CARRIED OUT. INFORMED KEISHA SUMMERS THAT FAMILY WANT'S TO TALK TO HER FOR UPDATE, GAVE FAMILY MEMBER'S PHONE NO. FRANCHESCA SISTER IN LAW [phone].
[2022-06-19] MEDS: CIPROFLOXACIN IV RTU 400 MG in PREMIX 1 EA IV SCH (12:32)
--- NOTE | 2022-06-19 13:51 | NUR ---
SINGING WAITER OR WAITRESS OPENING NOTES RECEIVED PATIENT SLEEPING, ABLE TO AROUSED ON VERBAL STIMULI AND LIGHT TOUCH,PATIENT OPENS EYES, PATIENT IS ON ET TUBE ON VENT SETTINGS ORDERED, TOLERATING WELL, NO SOB NOTED, NOT IN ANY DISTRESS. NO FACIAL GRIMACING NOTED. NOTED NGT ON RIGHT NARES HOOKED TO LOW INTERMITENT SUCTION NOTED WITH BROWN OUTPUT. NOTED DRESSING ON ABDOMINAL AREA S/P EXPLORATOMY AND LAPAROTOMY , DRESSING NOTED C/D/I. NOTED WENDY DRAIN ON RIGHT LOWER ABDOMEN WITH SEROSANGUINEOUS DRAINAGE. OSTOMY SITE WITH BAG ON LEFT LOWER ABDOMEN,NOTED INTACT, WITH BROWN LIQUID STOOL NOTED. F/C PATENT AND INTACT, DRAINING WITH CHUCHO COLORED URINE. RIGHT RADIAL ARTERIAL LINE, NOTED PATENT AND INTACT WITH BLOOD RETURN. RIGHT HAND PIV AND LEFT WRIST PIV NOTED PATENT AND INTACT, FLUSHES WELL, ON WITH LR RUNNING ORDERED.LANDRY MIDLINE NOTED PATENT AND INTACT WITH PROPOFOL RUNNING AT 35MCG/HR, PATIENT NOTED SEDATED. ON MONITOR WITH SR READING HR 90'S. BILATERAL WRIST RESTRAINT PLACED, CHECK FOR CIRCULATION AND SKIN CHECK, SAFETY MEASURES IN PLACED. CALL LIGHT WITHIN REACH. HOB ELEVATED. PLAN OF CARE CONTINUE. Addendum: 06/19/22 at 1355 by GRACE CASTAÑEDA RN TIMED IS 0800
[2022-06-19] MEDS: IV NS 0.9% 250 ML IV PRN (14:07)
--- NOTE | 2022-06-19 14:30 | NUR ---
NIGHAT MEDICAL OFFICER AT BEDSIDE, ASSESSED PATIENT, NIGHAT SUMMERS CALLED FAMILY REGADING BIOPSY RESULT.
--- NOTE | 2022-06-19 14:42 | NUR ---
DR. CORDERO AT BEDSIDE, NO NEW ORDER.
--- NOTE | 2022-06-19 19:19 | NUR ---
WEBSPHERE CONSULTANT CLOSING NOTES PATIENT IN BED, GLASCOW COMA SCALE E1VTM5, PATIENT IS ON ET TUBE ON VENT SETTINGS ORDERED, TOLERATING WELL, NO SOB NOTED, NOT IN ANY DISTRESS. NO FACIAL GRIMACING NOTED. NOTED NGT ON RIGHT NARES HOOKED TO LOW INTERMITENT SUCTION NOTED WITH BROWN OUTPUT. NOTED DRESSING ON ABDOMINAL AREA S/P EXPLORATOMY AND LAPAROTOMY , DRESSING NOTED C/D/I. NOTED WENDY DRAIN ON RIGHT LOWER ABDOMEN WITH SEROSANGUINEOUS DRAINAGE. OSTOMY SITE WITH BAG ON LEFT LOWER ABDOMEN, NOTED INTACT, WITH BROWN LIQUID STOOL NOTED. F/C PATENT AND INTACT, DRAINING WITH CHUCHO COLORED URINE. RIGHT RADIAL ARTERIAL LINE, NOTED PATENT AND INTACT WITH BLOOD RETURN. RIGHT HAND PIV AND LEFT WRIST PIV NOTED PATENT AND INTACT, FLUSHES WELL, ON WITH LR RUNNING ORDERED.LANDRY MIDLINE NOTED PATENT AND INTACT WITH PROPOFOL RUNNING AT 50MCG/HR. ON MONITOR WITH SR READING HR 90'S. BILATERAL WRIST RESTRAINT IN PLACED, CHECK FOR CIRCULATION AND SKIN CHECK, SAFETY MEASURES IN PLACED. CALL LIGHT WITHIN REACH. HOB ELEVATED. ENDORSED TO NIGHT NURSE FOR JIMMIE.
[2022-06-19] MEDS: ATORVASTATIN 40 MG TABLET PO SCH (21:43)
[2022-06-19] MEDS: DONEPEZIL 5 MG TABLET PO SCH (21:43)
[2022-06-19] MEDS: ENOXAPARIN SODIUM 40 MG/0.4 ML DISP.SYRIN SQ SCH (21:44)
[2022-06-20] VITALS (55 sets, daily range): BP systolic 93–149; BP diastolic 43–84
[2022-06-20] MEDS: PROPOFOL 100 ML IV PRN ×5 (00:32→19:27)
[2022-06-20] MEDS: IV LR 1000 ML 1,000 ML IV PRN (03:05)
[2022-06-20] MEDS: METRONIDAZOLE 500MG/ NS 100ML 500 MG in PREMIX 1 EA IV SCH ×3 (04:00→20:01)
[2022-06-20 05:27] LABS: BASOPHILS % (AUTO) 0.1 % (0.0-2.0); EOSINOPHILS % (AUTO) 1.5 % (0.0-6.0); HEMATOCRIT 30 % (39-51); LYMPHOCYTES # (AUTO) 0.7 K/uL (0.8-4.8); MEAN CORPUSCULAR HGB CONC 33 g/dl (31.0-36.0); MEAN CORPUSCULAR VOLUME 83 fL (80-96); MONOCYTES # (AUTO) 0.4 K/uL (0.1-1.30); MONOCYTES % (AUTO) 5.3 % (2.0-12.0); NEUTROPHILS # (AUTO) 6.3 K/uL (1.8-8.9); NEUTROPHILS % (AUTO) 84.1 % (43.0-81.0); PLATELET COUNT (AUTO) 189 K/uL (150-450); RED BLOOD CELL COUNT(AUTO) 3.62 MIL/uL (4.5-6.0); WHITE BLOOD COUNT (AUTO) 7.5 K/uL (4.3-11.0)
[2022-06-20 05:41] LABS: BILIRUBIN,TOTAL 0.4 mg/dL (0.2-1.0); CALCIUM, SERUM 7.1 mg/dL (8.5-10.1); CREATININE 1.2 mg/dL (0.6-1.3); MAGNESIUM 2.7 mg/dL (1.8-2.4); POTASSIUM 3.3 mmol/L (3.5-5.1); TOTAL PROTEIN, SERUM 4.5 g/dL (6.4-8.2)
[2022-06-20 05:43] LABS: ALBUMIN 1.3 g/dL (3.4-5.0)
--- NOTE | 2022-06-20 07:15 | NUR ---
FISHERIES ENFORCEMENT OFFICER OPENING NOTES PATIENT IN BED, GLASCOW COMA SCALE E1V1M5, PATIENT IS ON ET TUBE ON VENT SETTINGS ORDERED, TOLERATING WELL, NO SOB NOTED, NOT IN ANY DISTRESS. NO FACIAL GRIMACING NOTED. NOTED NGT ON RIGHT NARES HOOKED TO LOW INTERMITENT SUCTION, NO OUTPUT NOTED. NOTED DRESSING ON ABDOMINAL AREA S/P EXPLORATOMY AND LAPAROTOMY , DRESSING NOTED C/D/I. NOTED WENDY DRAIN ON RIGHT LOWER ABDOMEN WITH SANGUINEOUS DRAINAGE. OSTOMY SITE NOTED ON LEFT LOWER ABDOMEN, NOTED INTACT, WITH BROWN LIQUID STOOL NOTED. F/C PATENT AND INTACT, DRAINING WITH CHUCHO COLORED URINE. RIGHT RADIAL ARTERIAL LINE, NOTED PATENT AND INTACT WITH BLOOD RETURN. RIGHT HAND PIV AND LEFT WRIST PIV NOTED PATENT AND INTACT, FLUSHES WELL, ON WITH LR RUNNING ORDERED. LANDRY MIDLINE NOTED PATENT AND INTACT WITH PROPOFOL RUNNING AT 50MCG/HR. ON MONITOR WITH SR READING HR 90'S. BILATERAL WRIST RESTRAINT IN PLACED, CHECK FOR CIRCULATION AND SKIN CHECK, SAFETY MEASURES IN PLACED. CALL LIGHT WITHIN REACH. HOB ELEVATED. PLAN OF CARE CONTINUE.
[2022-06-20] MEDS ORDERED: FUROSEMIDE 20 MG/2 ML VIAL IV SCH (08:00)
[2022-06-20] MEDS: POTASSIUM CL. PREMIX PERIPHER. 50 ML IV SCH ×2 (08:13→09:16)
[2022-06-20] MEDS: DOCUSATE SODIUM LIQ 100 MG/10 ML UDC NG SCH ×2 (08:13→16:45)
[2022-06-20] MEDS: DULOXETINE HCL 20 MG CAPSULE.DR PO SCH (08:16)
[2022-06-20] MEDS: GABAPENTIN 300 MG CAPSULE PO SCH ×2 (08:16→16:46)
[2022-06-20] MEDS: PANTOPRAZOLE 40 MG VIAL IV SCH (08:16)
[2022-06-20] MEDS: TAMSULOSIN 0.4 MG CAP.SR.24H PO SCH (08:16)
[2022-06-20] MEDS: RIVASTIGMINE TARTRATE 4.6 MG PATCH.TD24 TD SCH (08:16)
[2022-06-20] MEDS: FERROUS SULFATE (325 MG) 325 MG/TAB TABLET PO SCH ×2 (08:16→16:45)
[2022-06-20] MEDS: CELECOXIB 100 MG CAPSULE PO SCH (08:16)
[2022-06-20] MEDS: METOPROLOL SUCCINATE 25 MG TAB.SR.24H PO SCH (08:17)
[2022-06-20] MEDS: AMLODIPINE BESYLATE 5 MG TABLET PO SCH (08:17)
[2022-06-20] MEDS: BENAZEPRIL HCL 20 MG TABLET PO SCH (08:17)
--- NOTE | 2022-06-20 09:02 | NUR ---
ABG RESULTS RECEIVED, RT CARSON CHANGES VENT SETTING TO FIO2 70% FROM 80%, PATIENT NO SOB NOTED, NOT IN ANY DISTRESS, 02 SAT 97-98%.
[2022-06-20] MEDS: CIPROFLOXACIN IV RTU 400 MG in PREMIX 1 EA IV SCH ×4 (11:04→23:00)
[2022-06-20] MEDS ORDERED: PRECEDEX 400 MCG/100 ML BOTTLE 100 ML IV PRN (12:00)
--- NOTE | 2022-06-20 13:00 | NUR ---
SEEN BY DIE SINKER, AND SON AT THE BEDSIDE, WITH ORDER TO CHANGED VENT SETTINGS TO 40% FIO2, KEEP 02 SAT 95%, IF PATIENT CAN TOLERATE CAN CHANGED PEEP FROM 8 TO 5, INFORMED CARSON VIERA
--- NOTE | 2022-06-20 14:30 | NUR ---
KEISHA HOSPICE ADMITTING CLERK AT THE BEDSIDE, NO NEW ORDER.
--- NOTE | 2022-06-20 14:40 | NUR ---
DR. CORDERO AT THE BEDSIDE, WITH NEW ORDER TO START NGT FEEDING JEVITY 1.2 @30ML/HR X 10 HOURS, STOP FOR 4 HOURS AND RESUME, CHECK RESIDUAL EVERY 2 HOURS. NOTED AND CARRIED OUT.
--- NOTE | 2022-06-20 14:45 | NUR ---
DR. CORDERO CHECKED PATIENT'S ABDOMINAL INCISION SITE, NOTED WITH FRED, NO DRAINAGE NOTED, DRESSING NOTED C/D/I, NO NEW ORDERS.
[2022-06-20] MEDS ORDERED: JEVITY 1.2 CAL 1,000 ML BOTTLE GT PRN ×2 (15:00→15:02)
--- NOTE | 2022-06-20 16:00 | NUR ---
STARTED NGT FEEDING, NGT PLACEMENT VERIFIED THRU AUSCULTATION, STARTED ON JEVITY 1. @30ML/HR.
[2022-06-20] MEDS: IV NS 0.9% 250 ML IV PRN (16:38)
--- NOTE | 2022-06-20 17:00 | NUR ---
CHECK NGT FOR RESIDUAL, NO RESIDUAL NOTED, NO N/V NOTED.
--- NOTE | 2022-06-20 18:00 | NUR ---
CHECKED NGT FOR RESIDUAL, NO RESIDUAL NOTED.
--- NOTE | 2022-06-20 19:00 | NUR ---
FUR CUTTER CLOSING NOTES PATIENT IN BED, GLASCOW COMA SCALE E1V1M5, PATIENT IS ON ET TUBE ON VENT SETTINGS ORDERED, TOLERATING WELL, NO SOB NOTED, NOT IN ANY DISTRESS. NO FACIAL GRIMACING NOTED. NOTED NGT ON RIGHT NARES, NOTED ON JEVITY 1.2 @30ML/HR, NO N/V NOTED, NO RESIDUAL NOTED. NOTED DRESSING ON ABDOMINAL AREA S/P EXPLORATOMY AND LAPAROTOMY , DRESSING NOTED C/D/I. NOTED WENDY DRAIN ON RIGHT LOWER ABDOMEN WITH SANGUINEOUS DRAINAGE. OSTOMY SITE NOTED ON LEFT LOWER ABDOMEN, NOTED INTACT, WITH BROWN LIQUID STOOL NOTED. F/C PATENT AND INTACT, DRAINING WITH CLEAR YELLOW URINE. RIGHT RADIAL ARTERIAL LINE, NOTED PATENT AND INTACT WITH BLOOD RETURN. RIGHT HAND PIV AND LEFT WRIST PIV NOTED PATENT AND INTACT, FLUSHES WELL. LANDRY MIDLINE NOTED PATENT AND INTACT WITH PROPOFOL RUNNING AT 60MCG/HR. ON TELE MONITOR WITH SR READING HR 90'S. BILATERAL WRIST RESTRAINT IN PLACED, CHECK FOR CIRCULATION AND SKIN CHECK, SAFETY MEASURES IN PLACED. CALL LIGHT WITHIN REACH. HOB ELEVATED. WILL ENDORSED TO NIGHT NURSE FOR JIMMIE.
--- NOTE | 2022-06-20 20:43 | NUR ---
RT NOTE PT RECEIVED ON CURRENT AC SETTINGS WITH PEEP OF 8. SPO2 CURRENTLY @ 92%. WILL CONTINUE TO MONITOR CLOSELY AND TITRATE FIO2 IF NEEDED. EMMA SANTOS AWARE.
[2022-06-20] MEDS: DONEPEZIL 5 MG TABLET PO SCH (21:22)
[2022-06-20] MEDS: ATORVASTATIN 40 MG TABLET PO SCH (21:22)
[2022-06-20] MEDS: ENOXAPARIN SODIUM 40 MG/0.4 ML DISP.SYRIN SQ SCH (21:24)
[2022-06-21] VITALS (24 sets, daily range): BP systolic 94–165; BP diastolic 51–93
[2022-06-21] MEDS: PROPOFOL 100 ML IV PRN ×4 (00:16→22:35)
[2022-06-21] MEDS: MORPHINE SULFATE INJ 2 MG/ML DISP.SYRIN IV PRN (01:28)
--- NOTE | 2022-06-21 01:31 | NUR ---
BRIDGE GANG WORKER PT NOTED GRIMACING; EYES OPEN ASKED VIA PHYSICAL DAMAGE APPRAISER IF HE IS IN PAIN; ASKED IF PAIN WAS IN ABDOMEN. PT NODDED YES AND WAS GIVEN MORPHINE ORDERED.
--- NOTE | 2022-06-21 02:30 | NUR ---
ARMATURE REPAIRER TUBE FEEDING STOPPED AFTER 10 HOURS TO BE RESTARTED AT 0630.
[2022-06-21] MEDS: METRONIDAZOLE 500MG/ NS 100ML 500 MG in PREMIX 1 EA IV SCH (04:00)
[2022-06-21 05:17] LABS: BASOPHILS % (AUTO) 0.3 % (0.0-2.0); EOSINOPHILS % (AUTO) 0.7 % (0.0-6.0); HEMATOCRIT 34 % (39-51); HEMOGLOBIN 11.2 g/dL (13.5-17.5); LYMPHOCYTES # (AUTO) 1.2 K/uL (0.8-4.8); MEAN CORPUSCULAR HGB CONC 33 g/dl (31.0-36.0); MEAN CORPUSCULAR VOLUME 83 fL (80-96); MONOCYTES # (AUTO) 0.2 K/uL (0.1-1.30); MONOCYTES % (AUTO) 3.7 % (2.0-12.0); NEUTROPHILS # (AUTO) 4.8 K/uL (1.8-8.9); NEUTROPHILS % (AUTO) 76.3 % (43.0-81.0); PLATELET COUNT (AUTO) 184 K/uL (150-450); RED BLOOD CELL COUNT(AUTO) 4.04 MIL/uL (4.5-6.0); WHITE BLOOD COUNT (AUTO) 6.3 K/uL (4.3-11.0)
[2022-06-21 05:33] LABS: BILIRUBIN,TOTAL 0.4 mg/dL (0.2-1.0); CALCIUM, SERUM 7.1 mg/dL (8.5-10.1); MAGNESIUM 2.7 mg/dL (1.8-2.4); PHOSPHORUS 3.2 mg/dL (2.5-4.9); POTASSIUM 3.2 mmol/L (3.5-5.1)
[2022-06-21 05:50] LABS: ALBUMIN 1.4 g/dL (3.4-5.0)
--- NOTE | 2022-06-21 06:11 | NUR ---
RT NOTE UNABLE TO TITRATE PEEP DUE TO SATURATION STAYING CONSISTENT @ 92-93% THROUGHOUT SHIFT. RN DANIELLE AWARE. WILL ENDORSE TO NEXT SHIFT.
--- NOTE | 2022-06-21 06:30 | NUR ---
ONCOLOGY PHARMACIST TUBE FEEDING RESTARTED AT 40 ML/HR TO RUN FOR 10 HRS.
[2022-06-21] MEDS ORDERED: POTASSIUM CHLORIDE 20 MEQ POWDER PACKET PO ONE (08:00)
[2022-06-21] MEDS: METOPROLOL SUCCINATE 25 MG TAB.SR.24H PO SCH (08:21)
[2022-06-21] MEDS: AMLODIPINE BESYLATE 5 MG TABLET PO SCH (08:21)
[2022-06-21] MEDS: FERROUS SULFATE (325 MG) 325 MG/TAB TABLET PO SCH ×2 (08:22→16:28)
[2022-06-21] MEDS: TAMSULOSIN 0.4 MG CAP.SR.24H PO SCH (08:22)
[2022-06-21] MEDS: CELECOXIB 100 MG CAPSULE PO SCH (08:23)
[2022-06-21] MEDS: BENAZEPRIL HCL 20 MG TABLET PO SCH (08:23)
[2022-06-21] MEDS: DULOXETINE HCL 20 MG CAPSULE.DR PO SCH (08:23)
[2022-06-21] MEDS: GABAPENTIN 300 MG CAPSULE PO SCH ×2 (08:23→16:28)
[2022-06-21] MEDS: DOCUSATE SODIUM LIQ 100 MG/10 ML UDC NG SCH ×2 (08:23→16:28)
[2022-06-21] MEDS: PANTOPRAZOLE 40 MG TABLET.DR PO SCH (08:27)
[2022-06-21] MEDS: POTASSIUM CL. PREMIX PERIPHER. 50 ML IV SCH ×6 (09:14→13:42)
[2022-06-21] MEDS: CIPROFLOXACIN HCL 500 MG TABLET GT SCH ×2 (09:55→20:42)
[2022-06-21] MEDS: RIVASTIGMINE TARTRATE 4.6 MG PATCH.TD24 TD SCH (09:57)
[2022-06-21] MEDS: METRONIDAZOLE 500 MG TABLET GT SCH ×2 (12:42→20:41)
[2022-06-21 15:08] LABS: ABG OXYGEN SATURATION 97.6 % (92.0-98.5); ABG PCO2 27.3 mmHg (35.0-45.0); ABG PH 7.436 (7.350-7.450); ABG PO2 128.2 mmHg (75.0-100.0); AaDO2 485.5 mmHg; COHb 0.6 % (0.5-1.5); MetHb 0.3 % (0.0-1.5); O2Hb 96.7 % (94.0-97.0); SITE, ABG Right Radial; VENT MODE, BG AC 26 525 90% +8
--- NOTE | 2022-06-21 18:30 | NUR ---
BIOPHARMACEUTICAL REP 7A SHIFT PATIENT CONT BEDREST / RESTING COMFORTABLY IN BED, REMAINS INTUBATED. CONT VENT MANAGEMENT. CONT ETT SUCTIONING FOR COPIOUS SECRETIONS NGT ON RIGHT NARES, NOTED ON JEVITY 1.2 @30ML/HR, NO N/V NOTED, NO RESIDUAL NOTED. DRESSING TO ABDOMINAL AREA S/P EXPLORATOMY AND LAPAROTOMY , DRESSING NOTED C/D/I. NOTED WENDY DRAIN ON RIGHT LOWER ABDOMEN WITH SANGUINEOUS DRAINAGE. OSTOMY SITE NOTED ON LEFT LOWER ABDOMEN, NOTED INTACT, WITH BROWN LIQUID STOOL NOTED. F/C PATENT AND INTACT, DRAINING WITH CLEAR YELLOW URINE. RIGHT RADIAL ARTERIAL LINE MALFUNCTIONING / OCCLUDED RIGHT HAND PIV AND LEFT WRIST PIV NOTED PATENT AND INTACT, FLUSHES WELL. LANDRY MIDLINE NOTED PATENT AND INTACT WITH PROPOFOL RUNNING AT 30MCG/HR. SR READING HR 90'S. BILATERAL WRIST RESTRAINT IN PLACED, CHECK FOR CIRCULATION AND SKIN CHECK, SAFETY MEASURES IN PLACED. CALL LIGHT WITHIN REACH. HOB ELEVATED. WILL ENDORSED TO NIGHT NURSE FOR JIMMIE.
--- NOTE | 2022-06-21 19:20 | NUR ---
Pt is noted in bed Intubated with vent therapy as report is received from the off going nurse. Sinus Rhythm on the Tele monitor , Diminished Lungs sound with ETT 7.5/22 to vent and setting is AC, 20, 50, 450 and 8. Skin dry, warm with surgical site noted to Midline off Abdominal with Right Abdominal WENDY-Drain and Left Colostomy bag and Alfaro Cath. Pt is also noted with Right Radial Arterial Line, Left PICC Line , soft wrist two points Restraints and NG-Tube with Jevity 1.2CAL at 30MLand feeding will be held at 200 to 2400 as ordered. Pt care continue with Pain management in progress , Propofol at 35mcg/14.4ML therapy in progress.
[2022-06-21] MEDS: ATORVASTATIN 40 MG TABLET PO SCH (20:41)
[2022-06-21] MEDS: DONEPEZIL 5 MG TABLET PO SCH (20:41)
[2022-06-21] MEDS: ENOXAPARIN SODIUM 40 MG/0.4 ML DISP.SYRIN SQ SCH (20:43)
[2022-06-22] VITALS (24 sets, daily range): BP systolic 104–182; BP diastolic 49–84
--- NOTE | 2022-06-22 00:48 | NUR ---
Pt remain Intubated to vent and Propofol gtt therapy in progress. Pt care continue as Jevity feeding is restarted as ordered while turn , reposition and suction as needed.
--- NOTE | 2022-06-22 04:35 | NUR ---
Pt remain full code and Intubated with Propofol at 30mcg as AM and wound care done . Pt care continue with feeding infusing as ordered.
[2022-06-22] MEDS: METRONIDAZOLE 500 MG TABLET GT SCH ×3 (04:45→21:18)
[2022-06-22 05:12] LABS: BASOPHILS % (AUTO) 0.5 % (0.0-2.0); EOSINOPHILS % (AUTO) 1.6 % (0.0-6.0); HEMATOCRIT 35 % (39-51); HEMOGLOBIN 11.2 g/dL (13.5-17.5); LYMPHOCYTES # (AUTO) 1.6 K/uL (0.8-4.8); LYMPHOCYTES % (AUTO) 17.5 % (20.0-44.0); MEAN CORPUSCULAR HGB CONC 32 g/dl (31.0-36.0); MEAN CORPUSCULAR VOLUME 83 fL (80-96); MONOCYTES # (AUTO) 0.5 K/uL (0.1-1.30); MONOCYTES % (AUTO) 5.5 % (2.0-12.0); NEUTROPHILS # (AUTO) 6.7 K/uL (1.8-8.9); NEUTROPHILS % (AUTO) 74.9 % (43.0-81.0); PLATELET COUNT (AUTO) 146 K/uL (150-450); RED BLOOD CELL COUNT(AUTO) 4.14 MIL/uL (4.5-6.0)
[2022-06-22] MEDS: PROPOFOL 100 ML IV PRN (05:13)
[2022-06-22 05:30] LABS: CALCIUM, SERUM 7.3 mg/dL (8.5-10.1); CREATININE 0.8 mg/dL (0.6-1.3); MAGNESIUM 2.7 mg/dL (1.8-2.4); PHOSPHORUS 3.5 mg/dL (2.5-4.9); POTASSIUM 3.4 mmol/L (3.5-5.1)
--- NOTE | 2022-06-22 07:09 | NUR ---
Pt care continue as report is given to the AM receiving nurse.
--- NOTE | 2022-06-22 08:00 | NUR ---
Shemar [address] held. Will clarify with Dr Walker if he wants to continue Pt recently dialyzed with 1500 Out Cont with plan of care Addendum: 06/22/22 at 0924 by CHANTAL WASHINGTON RN Note is for Differrent Patient
[2022-06-22] MEDS: FERROUS SULFATE (325 MG) 325 MG/TAB TABLET PO SCH ×2 (08:12→18:19)
[2022-06-22] MEDS: GABAPENTIN 300 MG CAPSULE PO SCH ×2 (08:12→18:19)
[2022-06-22] MEDS: CELECOXIB 100 MG CAPSULE PO SCH (08:12)
[2022-06-22] MEDS: AMLODIPINE BESYLATE 5 MG TABLET PO SCH (08:13)
[2022-06-22] MEDS: DULOXETINE HCL 20 MG CAPSULE.DR PO SCH (08:13)
[2022-06-22] MEDS: METOPROLOL SUCCINATE 25 MG TAB.SR.24H PO SCH (08:13)
[2022-06-22] MEDS: PANTOPRAZOLE 40 MG TABLET.DR PO SCH (08:13)
[2022-06-22] MEDS: DOCUSATE SODIUM LIQ 100 MG/10 ML UDC NG SCH ×2 (08:13→18:19)
[2022-06-22] MEDS: BENAZEPRIL HCL 20 MG TABLET PO SCH (08:13)
[2022-06-22] MEDS: TAMSULOSIN 0.4 MG CAP.SR.24H PO SCH (08:13)
[2022-06-22] MEDS: RIVASTIGMINE TARTRATE 4.6 MG PATCH.TD24 TD SCH (08:15)
[2022-06-22] MEDS: CIPROFLOXACIN HCL 500 MG TABLET GT SCH ×2 (08:15→21:18)
[2022-06-22] MEDS ORDERED: DC PROPOFOL WHEN EXTUBATED XX PRN (09:00)
--- NOTE | 2022-06-22 09:51 | NUR ---
Pt Extubated. PT AAOx3, place on O2 NC titrate to keep O2 sat>92 Cont to monitor closely. post extubation for any signs of resp distress
[2022-06-22] MEDS: POTASSIUM CL. PREMIX PERIPHER. 50 ML IV SCH ×4 (10:12→13:33)
--- NOTE | 2022-06-22 19:30 | NUR ---
RN NOTE RECEIVED PT IN BED, ALERT, AWAKE AND VERBALLY RESPONSIVE. PT ABLE TO MAKE NEEDS KNOWN, ABLE TO FOLLOW SIMPLE COMMANDS. DENIES PAIN OR DISCOMFORT AT THIS TIME. PT ON S/P EXTUBATION, CURRENTLY ON 2LPM O2 VIA NC, WELL TOLERATED O2 SAT 90%, NO ACUTE RESP DISTRESS. AFEBRILE. PT ATTACHED TO BEDSIDE TUFTING SUPERVISOR CURRENT READING NSR HR92. HOB ELEVATED. LANDRY PICC LINE PATENT, TKO. PT WITH COLOSTOMY BAG ON LLQ, STOMA WNL, NO S/SX OF INFX, WENDY DRAIN ON RLQ DRAINING SEROSANGIOUS FLUID, WENDY BULB COMPRESSED. FC IN PLACED, PATENT DRAINING TEA COLORED URINE, SLIGHLTY CLOUDY.SAFETY PRECAUTIONS IMPLEMENTED AT ALL TIMES. WILL CONT POC.
[2022-06-22] MEDS: ATORVASTATIN 40 MG TABLET PO SCH (21:18)
[2022-06-22] MEDS: DONEPEZIL 5 MG TABLET PO SCH (21:18)
[2022-06-22] MEDS: ENOXAPARIN SODIUM 40 MG/0.4 ML DISP.SYRIN SQ SCH (21:24)
[2022-06-23] VITALS (13 sets, daily range): BP systolic 108–139; BP diastolic 65–78
[2022-06-23] MEDS: METRONIDAZOLE 500 MG TABLET GT SCH ×3 (05:22→20:35)
[2022-06-23 05:55] LABS: BASOPHILS % (AUTO) 0.2 % (0.0-2.0); EOSINOPHILS % (AUTO) 0.9 % (0.0-6.0); HEMATOCRIT 35 % (39-51); HEMOGLOBIN 11.5 g/dL (13.5-17.5); LYMPHOCYTES # (AUTO) 1.6 K/uL (0.8-4.8); LYMPHOCYTES % (AUTO) 16.1 % (20.0-44.0); MEAN CORPUSCULAR HGB CONC 33 g/dl (31.0-36.0); MEAN CORPUSCULAR VOLUME 83 fL (80-96); MONOCYTES # (AUTO) 0.4 K/uL (0.1-1.30); MONOCYTES % (AUTO) 4.1 % (2.0-12.0); NEUTROPHILS % (AUTO) 78.7 % (43.0-81.0); PLATELET COUNT (AUTO) 172 K/uL (150-450); RED BLOOD CELL COUNT(AUTO) 4.26 MIL/uL (4.5-6.0); WHITE BLOOD COUNT (AUTO) 10.1 K/uL (4.3-11.0)
[2022-06-23 06:42] LABS: CALCIUM, SERUM 7.6 mg/dL (8.5-10.1); CREATININE 0.7 mg/dL (0.6-1.3); MAGNESIUM 2.5 mg/dL (1.8-2.4); PHOSPHORUS 2.8 mg/dL (2.5-4.9); POTASSIUM 3.7 mmol/L (3.5-5.1)
--- NOTE | 2022-06-23 06:50 | NUR ---
RN NOTE PT REMAINS IN STABLE CONDITION. VSS. REMAINS ON 2LPM O2 VIA NC, WELL TOLERATED, O2 SAT 93%, NO SOB, NO ACUTE RESP DISTRESS NOTED. PT ABLE TO MAKE SIMPLE NEEDS KNOWN. BEDSIDE CONSUMER LOAN UNDERWRITER READING NSR AT THIS TIME. HIB ELEVATED AT ALL TIMES. ALL DUE MEDICATIONS GIVEN ORDERED. FC IN PLACED, DRAINING TEA COLORED URINE, URINE OUTPUT THROUGHOUT THE SHIFT 700CC. COLOSTOMY BAG IN PLACED, STOOL AMOUNT 500CC, LIQUID, DARK GREENISH IN COLOR. WENDY DRAIN ON RLQ IN PLACED, SEROSAN DRAINAGE NOTED 75CC THROUGHOUT THE SHIFT. KEPT PT CLEAN AND DRY, TURN/REPOS Q2H/PRN. ALL NEEDS ATTENDED. WILL ENDORSE TO AM SHIFT NURSE FOR JIMMIE.
--- NOTE | 2022-06-23 07:23 | NUR ---
WOUND CARE CONSULT: PT PRESENTS WITH ABDOMINAL SURGICAL DRESSING AND COLOSTOMY WELL SCROTAL EDEMA, SOME GENERALIZED EDEMA AND RT BUTTOCK NONTENDER AREA OF DISCOLORATION, NOT ON A BONY AREA. RECOMMENDATIONS MADE FOR SKIN PROTECTION AND DISCUSSED WITH NURSING STAFF AND REAL ESTATE LEASING MANAGER. FIRST STEP LOW AIRLOSS MATTRESS IS ORDERED. MD IN AGREEMENT WITH PLAN OF CARE.
[2022-06-23] MEDS ORDERED: Z GUARD REMEDY 4 OZ OINT TP PRN (07:30)
[2022-06-23] MEDS: GABAPENTIN 300 MG CAPSULE PO SCH ×2 (08:12→17:23)
[2022-06-23] MEDS: DOCUSATE SODIUM LIQ 100 MG/10 ML UDC NG SCH ×2 (08:12→17:23)
[2022-06-23] MEDS: AMLODIPINE BESYLATE 5 MG TABLET PO SCH (08:13)
[2022-06-23] MEDS: METOPROLOL SUCCINATE 25 MG TAB.SR.24H PO SCH (08:13)
[2022-06-23] MEDS: TAMSULOSIN 0.4 MG CAP.SR.24H PO SCH (08:13)
[2022-06-23] MEDS: CELECOXIB 100 MG CAPSULE PO SCH (08:13)
[2022-06-23] MEDS: CIPROFLOXACIN HCL 500 MG TABLET GT SCH ×2 (08:13→21:23)
[2022-06-23] MEDS: BENAZEPRIL HCL 20 MG TABLET PO SCH (08:13)
[2022-06-23] MEDS: FERROUS SULFATE (325 MG) 325 MG/TAB TABLET PO SCH ×2 (08:14→17:23)
[2022-06-23] MEDS: DULOXETINE HCL 20 MG CAPSULE.DR PO SCH (08:14)
[2022-06-23] MEDS: PANTOPRAZOLE 40 MG TABLET.DR PO SCH (08:14)
[2022-06-23] MEDS: RIVASTIGMINE TARTRATE 4.6 MG PATCH.TD24 TD SCH (08:15)
[2022-06-23 09:08] LABS: ABG BASE EXCESS -1.5 mmol/L; ABG OXYGEN SATURATION 94.2 % (92.0-98.5); ABG PCO2 26.9 mmHg (35.0-45.0); ABG PH 7.499 (7.350-7.450); ABG PO2 67.7 mmHg (75.0-100.0); AaDO2 186.6 mmHg; COHb 1.1 % (0.5-1.5); MetHb 0.2 % (0.0-1.5); PEEP,BG 5 cm H2O; SITE, ABG Right Brachial; VT, ABG 450 mL
--- NOTE | 2022-06-23 11:30 | NUR ---
WRAPPING CLERK NOTE (TRANSFER FROM ICU) PT WAS TRANSFERRED TO THE UNIT AT 1105 FROM ICU VIA BED ACCOMPANIED BY EMMA CORNEJO. RECEIVED REPORT EARLIER VIA TELEPHONE FROM [facility]. RECEIVED PT AWAKE AND RESTING IN BED. PT IS A/O X3, JAMAICAN SPEAKING. KILN OPERATOR AVAILABLE NEEDED. PT ABLE TO MAKE SIMPLE NEEDS KNOWN. PT IS ON O2 AT 2L/MIN VIA NASAL CANNULA, TOLERATING WELL WITH SPO2 94%. NO SOB NOTED. NOT IN ANY SIGN OF RESPIRATORY DISTRESS. PLACED PT ON TELE INTERIOR PANELER WITH CURRENT READING OF SINUS RHYTHM, HR 86. NO C/O CARDIAC DISTRESS VOICED OUT AT THIS TIME. PT NOTED ON S/P EXPLORATORY LAPAROTOMY AND BOWEL RESECTION OF SIGMOID MASS WITH DRESSING C/D/I ON THE MID ABDOMINAL AREA. PT NOTED WITH WENDY DRAIN ON RIGHT LOWER ABDOMEN IN PLACE WITH NO OUTPUT NOTED. PT NOTED WITH COLOSTOMY ON LEFT LOWER ABDOMEN, DRAINED 150ML OF STOOL. IV ACCESS ON LANDRY PICCLINE SALINE LOCKED, INTACT, AND PATENT. PT'S GRIFFIN IN PLACE AND DRAINING WELL. VITAL SIGNS: BP 137/76, P 86, TEMP 98.2, RR 20. SAFETY MEASURES IN PLACE: BED IN LOWEST AND LOCKED POSITION, SIDE RAILS UP X3, BED ALARM ON, KEPT HOB ELEVATED, AND CALL LIGHT WITHIN REACH. WILL CONTINUE PT WITH PLAN OF CARE.
--- NOTE | 2022-06-23 19:26 | NUR ---
BUCKLE WIRE INSERTER CLOSING NOTE PT AWAKE AND RESTING IN BED. PT IS A/O X3, MICRONESIAN SPEAKING. GREENHOUSE OR NURSERY TRANSPLANTER AVAILABLE NEEDED. PT ABLE TO MAKE SIMPLE NEEDS KNOWN. PT IS ON O2 AT 2L/MIN VIA NASAL CANNULA, TOLERATING WELL. NO SOB NOTED. NOT IN ANY SIGN OF RESPIRATORY DISTRESS. PT ON TELE CONVEYOR INSTALLER WITH CURRENT READING OF SINUS RHYTHM, HR 82. NO C/O CARDIAC DISTRESS VOICED OUT AT THIS TIME. PT ON S/P EXPLORATORY LAPAROTOMY AND BOWEL RESECTION OF SIGMOID MASS WITH DRESSING C/D/I ON THE MID ABDOMINAL AREA. PT NOTED WITH WENDY DRAIN ON RIGHT LOWER ABDOMEN IN PLACE WITH NO OUTPUT NOTED. PT NOTED WITH COLOSTOMY ON LEFT LOWER ABDOMEN, DRAINED 100ML OF STOOL. IV ACCESS ON LANDRY PICCLINE SALINE LOCK, INTACT, AND PATENT. PT'S GRIFFIN IN PLACE AND DRAINING WELL. ALL NEEDS ATTENDED. KEPT CLEAN AND COMFORTABLE AT ALL TIMES. TURNED AND REPOSITIONED Q2HRS AND NEEDED. SAFETY MEASURES IN PLACE: BED IN LOWEST AND LOCKED POSITION, SIDE RAILS UP X3, BED ALARM ON, KEPT HOB ELEVATED, AND CALL LIGHT WITHIN REACH. ENDORSED TO MAINTENANCE SERVICE TECHNICIAN NURSE FOR JIMMIE.
--- NOTE | 2022-06-23 19:30 | NUR ---
MINISTER HELPER OPENING NOTES RECEIVED PATIENT AWAKE IN BED. PATIENT IS A/O TIMES 3. BELGIAN SPEAKER. ABLE TO MAKE NEEDS KNOWN. NO PAIN NOTED. NO SOB NOTED. NO DISTRESS NOTED. ON TELE MONITOR READING SR. COLOSTOMY BAG INTACT AND PATENT. GRIFFIN CATHETER INTACT DRAINING ORANGE COLOR URINE. ALL NEEDS ATTENDED. DRESSING ON THE ABDOMEN INTACT AND PATENT. WENDY DRAINAGE INTACT. DRAINING PINKISH COLOR DRAINAGE. LANDRY PICC LINE INTACT AND PATENT AND SL. ALL SAFETY MEASURES IN PLACE. BED LOCKED IN THE LOWEST POSITION. CALL LIGHT AND TABLE IN EASY REACH. SIDE RAILS UP TIMES 2. BED ALARM ON . WILL CONTINUE TO MONITOR CLOSELY.
[2022-06-23] MEDS: ENOXAPARIN SODIUM 40 MG/0.4 ML DISP.SYRIN SQ SCH (20:37)
[2022-06-23] MEDS: ATORVASTATIN 40 MG TABLET PO SCH (21:50)
[2022-06-23] MEDS: DONEPEZIL 5 MG TABLET PO SCH (21:50)
[2022-06-24] VITALS (7 sets, daily range): BP systolic 122–152; BP diastolic 69–81
[2022-06-24] MEDS: METRONIDAZOLE 500 MG TABLET GT SCH ×3 (04:04→21:03)
[2022-06-24 05:54] LABS: BASOPHILS % (AUTO) 0.2 % (0.0-2.0); HEMATOCRIT 35 % (39-51); HEMOGLOBIN 11.4 g/dL (13.5-17.5); LYMPHOCYTES # (AUTO) 1.3 K/uL (0.8-4.8); LYMPHOCYTES % (AUTO) 16.2 % (20.0-44.0); MEAN CORPUSCULAR HGB CONC 33 g/dl (31.0-36.0); MEAN CORPUSCULAR VOLUME 82 fL (80-96); MONOCYTES # (AUTO) 0.4 K/uL (0.1-1.30); MONOCYTES % (AUTO) 5.7 % (2.0-12.0); NEUTROPHILS % (AUTO) 76.9 % (43.0-81.0); PLATELET COUNT (AUTO) 169 K/uL (150-450); RED BLOOD CELL COUNT(AUTO) 4.22 MIL/uL (4.5-6.0); WHITE BLOOD COUNT (AUTO) 7.8 K/uL (4.3-11.0)
[2022-06-24 06:27] LABS: CALCIUM, SERUM 7.4 mg/dL (8.5-10.1); CARBON DIOXIDE 24 mmol/L (21-32); CHLORIDE 106 mmol/L (98-107); CREATININE 0.7 mg/dL (0.6-1.3); GLUCOSE 119 mg/dL (74-106); POTASSIUM 3.2 mmol/L (3.5-5.1); SODIUM SERUM 138 mmol/L (136-145); UREA NITROGEN, BLOOD 16 mg/dL (7-18)
--- NOTE | 2022-06-24 06:40 | NUR ---
EMERGENCY RESPONSE OFFICER CLOSING NOTES PATIENT AWAKE IN BED. PATIENT IS A/O TIMES 3. PUERTO RICAN SPEAKER. ABLE TO MAKE NEEDS KNOWN. NO PAIN NOTED. NO SOB NOTED. NO DISTRESS NOTED. ON TELE MONITOR READING SR. CHANGED COLOSTOMY BAG . THE BAG IS INTACT AND PATENT. GRIFFIN CATHETER INTACT DRAINING ORANGE COLOR URINE.URINE OUTPUT NOTED 400 ML. ALL NEEDS ATTENDED. DRESSING ON THE ABDOMEN INTACT AND PATENT. WENDY DRAINAGE INTACT. DRAINING PINKISH COLOR DRAINAGE. LANDRY PICC LINE INTACT AND PATENT AND SL. FLUSHING WELL. ALL DUE MEDS GIVEN ORDERED. ALL SAFETY MEASURES IN PLACE. BED LOCKED IN THE LOWEST POSITION. CALL LIGHT AND TABLE IN EASY REACH. SIDE RAILS UP TIMES 2. BED ALARM ON . WILL ENDORSE FOR JIMMIE.
--- NOTE | 2022-06-24 07:30 | NUR ---
ms rn received on bed, awake,alert,oriented x4, not in any form of distress, respirations even and unlabored,no sob noted, s/p abdominal surgery w/ dressing dry and intact, rea drain at right abdomen area w/ serous output, lam to gravity bag w/ yellowish urine output, piccline at left upper arm,triple lumen,all are patent, repositioned for comfort ,all needs attended.
[2022-06-24] MEDS: RIVASTIGMINE TARTRATE 4.6 MG PATCH.TD24 TD SCH (09:19)
[2022-06-24] MEDS: DULOXETINE HCL 20 MG CAPSULE.DR PO SCH (09:19)
[2022-06-24] MEDS: TAMSULOSIN 0.4 MG CAP.SR.24H PO SCH (09:19)
[2022-06-24] MEDS: DOCUSATE SODIUM LIQ 100 MG/10 ML UDC NG SCH ×2 (09:19→17:00)
[2022-06-24] MEDS: CIPROFLOXACIN HCL 500 MG TABLET GT SCH ×2 (09:20→21:03)
[2022-06-24] MEDS: CELECOXIB 100 MG CAPSULE PO SCH (09:20)
[2022-06-24] MEDS: FERROUS SULFATE (325 MG) 325 MG/TAB TABLET PO SCH ×2 (09:20→17:34)
[2022-06-24] MEDS: BENAZEPRIL HCL 20 MG TABLET PO SCH (09:20)
--- NOTE | 2022-06-24 09:20 | NUR ---
ms serafin osborn served,due meds given,tolerated well.
[2022-06-24] MEDS: PANTOPRAZOLE 40 MG TABLET.DR PO SCH (09:21)
[2022-06-24] MEDS: METOPROLOL SUCCINATE 25 MG TAB.SR.24H PO SCH (09:21)
[2022-06-24] MEDS: GABAPENTIN 300 MG CAPSULE PO SCH ×2 (09:21→17:34)
[2022-06-24] MEDS: AMLODIPINE BESYLATE 5 MG TABLET PO SCH (09:21)
[2022-06-24] MEDS: MORPHINE SULFATE INJ 2 MG/ML DISP.SYRIN IV PRN (09:33)
--- NOTE | 2022-06-24 10:34 | NUR ---
WOUND CARE FOLLOW UP:PT CONTINUES TO PRESENT WITH ABDOMINAL SURGICAL DRESSING AND WENDY DRAIN WELL RT BUTTOCK NONTENDER AREA OF DISCOLORATION AND GENERALIZED EDEMA. DEFER TO SURGEON FOR ABDOMINAL SURGICAL SITE. RECOMMENDATIONS MADE FOR SKIN PROTECTION AND DISCUSSED WITH NURSING STAFF. GRIFFIN CATH NOTED. MD IN AGREEMENT WITH PLAN OF CARE.
[2022-06-24 12:52] LABS: ABG BASE EXCESS 1.1 mmol/L; ABG OXYGEN SATURATION 93.4 % (92.0-98.5); ABG PCO2 29.9 mmHg (35.0-45.0); ABG PH 7.509 (7.350-7.450); ABG PO2 63.3 mmHg (75.0-100.0); AaDO2 101.1 mmHg; COHb 1.9 % (0.5-1.5); MetHb 0.3 % (0.0-1.5); O2Hb 91.3 % (94.0-97.0); SITE, ABG Right Brachial; VENT MODE, BG 2 L NC
[2022-06-24] MEDS ORDERED: POTASSIUM CHLORIDE 20 MEQ TAB.PRT.SR PO SCH (13:00)
--- NOTE | 2022-06-24 18:00 | NUR ---
ms rn patient on bed,rea drain intact,lam draining, patient denies pain , respositioned for confort,all needs attended.
[2022-06-24 18:51] LABS: EOSINOPHILS % (MANUAL) 1 % (0-4); LYMPHOCYTES % (MANUAL) 12 % (16-48); MONOCYTES % (MANUAL) 5 % (0-11.0); NEUTROPHILS % (MANUAL) 82 (42-76)
--- NOTE | 2022-06-24 20:15 | NUR ---
COMMUNITY COORDINATOR NOTES RECEIVED LYING ON BED,A/O X3,BREATHING NORMAL,NOT IN ANY FORM OF DISTRESS,O2 IN USED AT 2L/NC TO KEEP O2 SAT ABOVE 90%.,S/P EXPLORATOMY LAPARATOMY AND BOWEL RESECTION OF SIGMOID MASS WITH COLOSTOMY,MID ABDOMINAL SURGICAL INCISION WITH DRESSING INTACT AND DRY,WITH RIGHT LOWER ABDOMEN JOSE R NIELSEN DRAINS CLEAR DISCHARGES,EMPTIED 8ML,WITH COLOSTOMY BAG ON LEFT LOWER ABDOMEN EMPTIED 400ML GREENISH OUTPUT,WITH GRIFFIN CATH IN PLACE DRAINS YELLOWISH URINE OUTPUT.ON SPECIALTY MATTRESS FOR SKIN MANAGEMENT,DVT PUMP IN USED FOR DVT PROPHYLAXIS.WITH LANDRY MIDLINE FOR MEDS/IV'S.WILL CONTINUE TO MONITOR STATUS.CALL LIGHT IN REACH,NEEDS ANTICIPATED.
[2022-06-24] MEDS: ENOXAPARIN SODIUM 40 MG/0.4 ML DISP.SYRIN SQ SCH (21:04)
[2022-06-24] MEDS: DONEPEZIL 5 MG TABLET PO SCH (21:13)
[2022-06-24] MEDS: ATORVASTATIN 40 MG TABLET PO SCH (21:13)
[2022-06-25] VITALS: BP 115/70
[2022-06-25 00:37] VITALS: BP 115/70
--- NOTE | 2022-06-25 02:30 | NUR ---
CONSTRUCTION MANAGEMENT ASSISTANT NOTES EMPTIED JOSE R NIELSEN 80ML CLEAR DISCHARGES AND COLOSTOMY BAG EMPTIED 500ML SOFT GREENISH STOOL
--- NOTE | 2022-06-25 02:45 | NUR ---
RAIL TECHNICIAN NOTES OFFERED PAIN MEDICINE BUT REFUSED
[2022-06-25 04:00] VITALS: BP 137/74
[2022-06-25 04:26] VITALS: BP 137/74
[2022-06-25] MEDS: METRONIDAZOLE 500 MG TABLET GT SCH ×2 (04:51→12:02)
--- NOTE | 2022-06-25 06:49 | NUR ---
UPPER CUTTER MACHINE NOTES SR ON TELE MONITOR.FAIRLY RESTED AT NIGHT,PAIN TOLERABLE.WENDY DRAINS CLEAR DISCHARGES.PO ABX TOLERATED WELL.NEGATIVE FOR ASPIRATION.REPOSITION PER PROTOCOL CALL LIGHT IN REACH,NEEDS ATTENDED.
--- NOTE | 2022-06-25 07:50 | NUR ---
NEUROCRITICAL CARE PHYSICIAN OPENING NOTES RECEIVED PATIENT AWAKE IN BED. PATIENT IS A/O TIMES 3. ITALIAN SPEAKER. ABLE TO MAKE NEEDS KNOWN. NO PAIN NOTED. NO SOB NOTED. NO DISTRESS NOTED. ON TELE MONITOR READING SR. COLOSTOMY BAG INTACT AND PATENT. GRIFFIN CATHETER INTACT DRAINING ORANGE COLOR URINE. ALL NEEDS ATTENDED. DRESSING ON THE ABDOMEN INTACT AND PATENT. WENDY DRAINAGE INTACT. DRAINING PINKISH COLOR DRAINAGE. LANDRY PICC LINE INTACT AND PATENT AND SL. ALL SAFETY MEASURES IN PLACE. BED LOCKED IN THE LOWEST POSITION. CALL LIGHT AND TABLE IN EASY REACH. SIDE RAILS UP TIMES 2. BED ALARM ON . WILL CONTINUE TO MONITOR CLOSELY. KEPT CALL LIGHT WITHIN REACH
[2022-06-25 08:00] LABS: BASOPHILS % (AUTO) 0.3 % (0.0-2.0); EOSINOPHILS % (AUTO) 1.2 % (0.0-6.0); HEMATOCRIT 34 % (39-51); HEMOGLOBIN 11.5 g/dL (13.5-17.5); LYMPHOCYTES # (AUTO) 1.6 K/uL (0.8-4.8); LYMPHOCYTES % (AUTO) 18.6 % (20.0-44.0); MEAN CORPUSCULAR HGB CONC 34 g/dl (31.0-36.0); MEAN CORPUSCULAR VOLUME 81 fL (80-96); MONOCYTES # (AUTO) 0.5 K/uL (0.1-1.30); MONOCYTES % (AUTO) 5.7 % (2.0-12.0); NEUTROPHILS # (AUTO) 6.5 K/uL (1.8-8.9); NEUTROPHILS % (AUTO) 74.2 % (43.0-81.0); PLATELET COUNT (AUTO) 168 K/uL (150-450); RED BLOOD CELL COUNT(AUTO) 4.21 MIL/uL (4.5-6.0); WHITE BLOOD COUNT (AUTO) 8.7 K/uL (4.3-11.0)
[2022-06-25 08:22] VITALS: BP 124/70
[2022-06-25 08:27] LABS: CALCIUM, SERUM 7.2 mg/dL (8.5-10.1); CARBON DIOXIDE 26 mmol/L (21-32); CHLORIDE 103 mmol/L (98-107); CREATININE 0.6 mg/dL (0.6-1.3); GLUCOSE 110 mg/dL (74-106); PHOSPHORUS 2.9 mg/dL (2.5-4.9); POTASSIUM 3.2 mmol/L (3.5-5.1); SODIUM SERUM 134 mmol/L (136-145); UREA NITROGEN, BLOOD 13 mg/dL (7-18)
[2022-06-25] MEDS ORDERED: RIVASTIGMINE TARTRATE 4.6 MG PATCH.TD24 TD SCH (09:00)
[2022-06-25] MEDS: DOCUSATE SODIUM LIQ 100 MG/10 ML UDC NG SCH ×2 (09:37→17:09)
[2022-06-25] MEDS: PANTOPRAZOLE 40 MG TABLET.DR PO SCH (09:38)
[2022-06-25] MEDS: BENAZEPRIL HCL 20 MG TABLET PO SCH (09:38)
[2022-06-25] MEDS: METOPROLOL SUCCINATE 25 MG TAB.SR.24H PO SCH (09:38)
[2022-06-25] MEDS: CELECOXIB 100 MG CAPSULE PO SCH (09:39)
[2022-06-25] MEDS: GABAPENTIN 300 MG CAPSULE PO SCH ×2 (09:39→17:09)
[2022-06-25] MEDS: DULOXETINE HCL 20 MG CAPSULE.DR PO SCH (09:39)
[2022-06-25] MEDS: FERROUS SULFATE (325 MG) 325 MG/TAB TABLET PO SCH ×2 (09:39→17:09)
[2022-06-25] MEDS: TAMSULOSIN 0.4 MG CAP.SR.24H PO SCH (09:39)
[2022-06-25] MEDS: AMLODIPINE BESYLATE 5 MG TABLET PO SCH (09:39)
[2022-06-25] MEDS: CIPROFLOXACIN HCL 500 MG TABLET GT SCH (09:39)
[2022-06-25] MEDS ORDERED: POTASSIUM CHLORIDE 20 MEQ TAB.PRT.SR PO SCH (10:00)
[2022-06-25] MEDS ORDERED: PANT40TA49 PO (12:07)
[2022-06-25] MEDS ORDERED: DOCU50LI NG (12:07)
[2022-06-25] MEDS ORDERED: CIPR-262 GT (12:07)
[2022-06-25] MEDS ORDERED: METR500T GT (12:07)
[2022-06-25] MEDS ORDERED: ENOX40DI SQ (12:07)
[2022-06-25] MEDS ORDERED: FERR325T28 PO (12:07)
[2022-06-25] MEDS ORDERED: RIVA1PAT TD (12:07)
--- NOTE | 2022-06-25 14:00 | NUR ---
DR. CORDERO AT BEDSIDE. JOSE R PRAT DISCONTINUED WITH NO COMPLICATIONS NOTED. NO BLEEDING NOTED.
--- NOTE | 2022-06-25 14:15 | NUR ---
MS RN NOTE: D/C F/C WITH 350 ML OF URINE.
--- NOTE | 2022-06-25 14:36 | NUR ---
MS RN NOTE: CONTINENT VOIDED X1, 50ML TO YELLOW COLORED URINE. NO FOUL ODOR, NO HEMATURIA NOTED.
[2022-06-25 16:03] VITALS: BP 122/69
--- NOTE | 2022-06-25 18:40 | NUR ---
MS RN NOTE: EDUCATION PROVIDED TO SARITHA AND SON FOR SURGICAL WOUND TREATMENT AND COLOSTOMY CARE. RETURN DEMONSTRATION BY SON.
--- NOTE | 2022-06-25 18:42 | NUR ---
FISH GRADER CLOSING NOTES PATIENT AWAKE IN BED. PATIENT IS A/O TIMES 3. ICELANDIC SPEAKER. ABLE TO MAKE NEEDS KNOWN. NO PAIN NOTED. NO SOB NOTED. NO DISTRESS NOTED. ON TELE MONITOR READING SR. CHANGED COLOSTOMY BAG . THE BAG IS INTACT AND PATENT. ALL NEEDS ATTENDED. DRESSING ON THE ABDOMEN INTACT AND PATENT. WENDY DRAINAGE INTACT D/C. NO S/S OF INFECTION NOTED. LANDRY PICC LINE INTACT AND PATENT AND SL. FLUSHING WELL. ALL DUE MEDS GIVEN ORDERED. ALL SAFETY MEASURES IN PLACE. BED LOCKED IN THE LOWEST POSITION. CALL LIGHT AND TABLE IN EASY REACH. SIDE RAILS UP TIMES 2. BED ALARM ON . WILL ENDORSE FOR JIMMIE.
--- NOTE | 2022-06-25 19:19 | NUR ---
CUTTING DEPARTMENT SUPERVISOR NOTE:. PATIENT PICKED UP [facility] 340 [place] 2 [place] PATIENT IS AAOX4, BRITISH SPEAKING BUT ABLE TO UNDERSTAND SIMPLE JAPANESE. DENIES ANY PAIN OR DISCOMFORT NO SOB NOTED. D/C INTRUCTION GIVEN TO PATIENT AND FAMILY. PHOTOS OS SKIN ISSUES TAKE AND PLACED IN CHART. PICC LINE D/C. TIP INTACT. PRESSURE APPLIED . NO BLEEDING NOTED. ID BAND REMOVED. EXIT CARE FOLDER GIVEN. PT IN STABLE CONDITION.
== END 2022-06-25 19:40 | disposition home health service (06) | DRG 329 ==
LOC: ER 17:20 → MED 19:43 → ICU 06-18 10:26 → TELE 06-23 11:05 → MED 06-25 11:38
PROVIDERS: ADMIT Nurse Practitioner Acute Care; ATTEND Registered Nurse
PROC: 0DBP8ZZ Excision of Rectum, Via Natural or Artificial Opening Endoscopic (ICD-10-PCS; principal; 2022-06-16)
PROC: 0D1E0Z4 Bypass Large Intestine to Cutaneous, Open Approach (ICD-10-PCS; 2022-06-18)
PROC: 0DBN0ZZ Excision of Sigmoid Colon, Open Approach (ICD-10-PCS; 2022-06-18)
PROC: 0D988ZZ Drainage of Small Intestine, Via Natural or Artificial Opening Endoscopic (ICD-10-PCS; 2022-06-18)
PROC: 5A1945Z Respiratory Ventilation, 24-96 Consecutive Hours (ICD-10-PCS; 2022-06-18)
PROC: 02HV33Z Insertion of Infusion Device into Superior Vena Cava, Percutaneous Approach (ICD-10-PCS; 2022-06-18)
PROC: B548ZZA Ultrasonography of Superior Vena Cava, Guidance (ICD-10-PCS; 2022-06-18)
PROC: 0BH17EZ Insertion of Endotracheal Airway into Trachea, Via Natural or Artificial Opening (ICD-10-PCS; 2022-06-18)
DX: C19 Malignant neoplasm of rectosigmoid junction (principal); J96.01 Acute respiratory failure with hypoxia; J96.02 Acute respiratory failure with hypercapnia; N17.0 Acute kidney failure with tubular necrosis; E44.0 Moderate protein-calorie malnutrition; E87.1 Hypo-osmolality and hyponatremia; E87.20 Acidosis, unspecified; J90 Pleural effusion, not elsewhere classified; J98.11 Atelectasis; N39.0 Urinary tract infection, site not specified; E88.09 Other disorders of plasma-protein metabolism, not elsewhere classified; R74.01 Elevation of levels of liver transaminase levels; D50.9 Iron deficiency anemia, unspecified; D69.6 Thrombocytopenia, unspecified; N40.0 Benign prostatic hyperplasia without lower urinary tract symptoms; K52.89 Other specified noninfective gastroenteritis and colitis; K59.09 Other constipation; E87.6 Hypokalemia; E87.70 Fluid overload, unspecified; I10 Essential (primary) hypertension; I25.10 Atherosclerotic heart disease of native coronary artery without angina pectoris; I70.0 Atherosclerosis of aorta; K40.20 Bilateral inguinal hernia, without obstruction or gangrene, not specified as recurrent; K62.1 Rectal polyp; M19.90 Unspecified osteoarthritis, unspecified site; B96.89 Other specified bacterial agents as the cause of diseases classified elsewhere; Z87.891 Personal history of nicotine dependence; K21.9 Gastro-esophageal reflux disease without esophagitis; D63.8 Anemia in other chronic diseases classified elsewhere
CPT/HCPCS: 31720; 36415; 36569; 36600; 71045-TC; 71250-TC; 74018; 76770-TC; 80048-TC; 80053-TC; 80061-TC; 80076-TC; 81001; 82378; 82570-TC; 82607-TC; 82728-TC; 82784; 82803-TC; 82962-TC; 83540-TC; 83605-TC; 83690-TC; 83735-TC; 84100-TC; 84153-TC; 84154-TC; 84155; 84165; 84300-TC; 84439-TC; 84443-TC; 84484-TC; 85025-TC; 85378-TC; 85730-TC; 86301; 86334; 86850-TC; 87040-TC; 87081-TC; 87086-TC; 88305-TC; 88309-TC; 88342; 93307-TC; 94003-TC; 94799-TC; 97116-TC; 97530-TC; A4216; A4223; A6253; A6403; C1751; C9113; G0378; J0330; J0690; J0744; J1650; J1940; J2250; J2270; J2405; J2704; J3010; J3480; J3490; J7030; J7040; J7050; J7120; P9045; Q9967

== ENCOUNTER 2022-06-27 16:59 | Inpatient (IN) | payer MEDICARE, OTHER ==
[~2022-06-27] VITALS: Ht 165.1 cm; Wt 73.0 kg
[~2022-06-27 16:59] MED LIST: AMLO1CAP6 PO; CELE-85 PO; CIPR-262 GT; DICL100G34 TP; DOCU50LI NG; DONE23TA3 PO; DULO20CA19 PO; ENOX40DI SQ; FERR325T28 PO; GABA300C PO; LORA-258 PO; MECL-173 PO; METO25TA4 PO; METR500T GT; OMEG-72 PO; OMEP1CAP25 PO; PANT40TA49 PO; RIVA1PAT TD; RIVA1PAT11 TP; ROSU10TA29 PO; TAMS-12 PO; TEMA30CA PO
--- NOTE | 2022-06-27 17:00 | NUR ---
BIBS FOR WOUND CHECK, PATIENT AND FAMILY ARE CONCERNED ABOUT POSSIBLE INFECTION. A/O X 3, ABLE TO MAKE NEEDS KNOWN. TOLERATING WELL ON ROOM AIR.
[2022-06-27] MEDS ORDERED: IV LR 1000 ML 1,000 ML BAG IV ONE (18:00)
[2022-06-27] MEDS ORDERED: PIPERACILLIN /TAZOBACTAM 3.375 G in IV D5W 50 ML IV ONE (18:00)
--- NOTE | 2022-06-27 19:11 | NUR ---
CALLED [facility] AGUILAR DATA CAPTURE CLERK FOR ADMISSION
--- NOTE | 2022-06-27 19:19 | NUR ---
covid swab collected and sent to lab
[2022-06-27] MEDS ORDERED: PIPERACILLIN /TAZOBACTAM 3.375 G VIAL IV ONE ×2 (19:20→23:58)
[2022-06-27 19:21] LABS: CALCIUM, SERUM 7.7 mg/dL (8.5-10.1); CARBON DIOXIDE 22 mmol/L (21-32); CHLORIDE 100 mmol/L (98-107); CREATININE 0.7 mg/dL (0.6-1.3); GLUCOSE 115 mg/dL (74-106); SODIUM SERUM 130 mmol/L (136-145); UREA NITROGEN, BLOOD 9 mg/dL (7-18)
[2022-06-27 19:32] LABS: ALANINE AMINOTRANSFERASE 40 U/L (12-78); ALBUMIN 1.6 g/dL (3.4-5.0); ALKALINE PHOSPHATASE 172 U/L (46-116); ASPARTATE AMINOTRANSFERASE 58 U/L (15-37); BILIRUBIN,DIRECT 0.2 mg/dL (0.0-0.2); BILIRUBIN,TOTAL 0.5 mg/dL (0.2-1.0); TOTAL PROTEIN, SERUM 5.9 g/dL (6.4-8.2)
[2022-06-27] MEDS ORDERED: IOHEXOL-300 100 ML VIAL IV ONE (19:51)
[2022-06-27 20:40] LABS: BASOPHILS % (AUTO) 0.3 % (0.0-2.0); EOSINOPHILS % (AUTO) 0.5 % (0.0-6.0); HEMATOCRIT 37 % (39-51); HEMOGLOBIN 12.1 g/dL (13.5-17.5); LYMPHOCYTES # (AUTO) 2.4 K/uL (0.8-4.8); LYMPHOCYTES % (AUTO) 20.8 % (20.0-44.0); MEAN CORPUSCULAR HGB CONC 33 g/dl (31.0-36.0); MEAN CORPUSCULAR VOLUME 81 fL (80-96); MONOCYTES # (AUTO) 0.7 K/uL (0.1-1.30); MONOCYTES % (AUTO) 6.5 % (2.0-12.0); NEUTROPHILS # (AUTO) 8.2 K/uL (1.8-8.9); NEUTROPHILS % (AUTO) 71.9 % (43.0-81.0); PLATELET COUNT (AUTO) 286 K/uL (150-450); RED BLOOD CELL COUNT(AUTO) 4.51 MIL/uL (4.5-6.0); WHITE BLOOD COUNT (AUTO) 11.4 K/uL (4.3-11.0)
--- NOTE | 2022-06-27 21:08 | NUR ---
CALLED [facility], PAGED DEPUTY MANAGER DUTCH FIRE SPRINKLER DESIGNER FOR ADMISSION
--- NOTE | 2022-06-27 21:48 | NUR ---
report given to Hari RN to continue care.
--- NOTE | 2022-06-27 22:01 | NUR ---
wheeled patient via gurney accompanied by EMT in no distress. RN assigned at bedside to assume care.
[2022-06-27 22:15] VITALS: BP 131/80
[2022-06-27] MEDS ORDERED: Z GUARD REMEDY 4 OZ OINT TP PRN (23:00)
[2022-06-27] MEDS ORDERED: ZOLPIDEM TARTRATE 5 MG TABLET PO PRN (23:00)
[2022-06-27] MEDS ORDERED: MAGNESIUM HYDROXIDE 30 ML UDC PO PRN (23:00)
[2022-06-27] MEDS ORDERED: ACETAMINOPHEN 325 MG TABLET PO PRN (23:00)
[2022-06-27] MEDS ORDERED: ONDANSETRON HCL/PF 4 MG/2 ML VIAL IVP PRN (23:00)
[2022-06-27] MEDS ORDERED: MAG HYDROX/AL HYDROX/SIMETH 30 ML UDC PO PRN (23:00)
--- NOTE | 2022-06-27 23:00 | NUR ---
MS SMALL EQUIPMENT OPERATOR NOTES: RECEIVED PATIENT FROM ER VIA [facility] ON STABLE CONDITION, TRANSFER TO ROOM, PLACED COMFORTABLY IN BED , BED IN LOW POSITION CALL LIGHTS WITHIN REACH, NO COMPLAIN OF PAIN AND DISCOMFORT AT THIS TIME, PATIENT IS A/O X4 YEMENI SPEAKING VERBALLY RESPONSIVE USE ACCREDITED TOWEL CABINET REPAIRER VIA PROJECT DESIGNER, SKIN ASSESSMENT DONE PICTURED TAKEN, INVENTORIES DOCUMENTED, AND SIGNED, PATIENT WAS ORIENTED TO ROOM REMIND TO USE THE ALEXIA LIGHTS WHEN NEEDED ASSISTANCE, IV LINE AT LAC#18 WITH ONGOING 0.3QSV277HX/HR INFUSING WELL, PATIENT KEPT CLEAN AND DRY ALL NEEDS MET WILL CONTINUE TO MONITOR.
--- NOTE | 2022-06-28 00:15 | NUR ---
RN NOTES: CALLED OUTSIDE PHARMACY TO HAVE DUE MEDICATION VERIFIED, SPOKE TO [facility] AND PER PHARMACIST THEY WERE HAVING PROBLEM WITH THE IT AND WAS UNABLE TO VERIFIED SAID MEDICATION ZOSYN 3.375 Q6H AND IV FLUID OF 0.9NSS@75ML/HR ASK IF WE CAN GIVE THE MEDICATION UNVERIFIED AND REPLIED THAT WE HAD TO COORDINATE WITH THE NURSING WHEY DEPARTMENT OPERATOR ON HOW TO DEAL WITH IT, ASK IF THERE IS AN EXACT TIME TO RESOLVE PROBLEM WITH IT AND HE SAID NO, INFORMED CN AND NURSING SUPV, PER INOCENTE TO GIVEN THE MEDICATION ORDERED , AND PER CHARGE NURSE TO DOCUMENT , STANDING ORDER FOR 12 MIDNIGHT ABX WAS GIVEN WITH IV FLUIDS NOTED AND CARRY OUT, WILL CONTINUE TO MONITOR.
[2022-06-28] MEDS ORDERED: VANCOMYCIN 1 GM in IV D5W 250ml IV ONE (00:30)
[2022-06-28] MEDS ORDERED: VANCOMYCIN 1 GM VIAL ONE (00:44)
[2022-06-28] MEDS: IV NS 0.9% 1,000 ML IV PRN ×2 (00:51→21:13)
[2022-06-28] MEDS: ZOSYN IVPB 3.375 G in IV D5W 50ml IV SCH ×5 (02:16→23:57)
[2022-06-28 05:52] LABS: BASOPHILS # (AUTO) 0.1 K/uL (0.0-0.2); BASOPHILS % (AUTO) 0.6 % (0.0-2.0); EOSINOPHILS % (AUTO) 0.8 % (0.0-6.0); HEMATOCRIT 35 % (39-51); HEMOGLOBIN 11.4 g/dL (13.5-17.5); LYMPHOCYTES # (AUTO) 2.1 K/uL (0.8-4.8); LYMPHOCYTES % (AUTO) 21.8 % (20.0-44.0); MEAN CORPUSCULAR HGB CONC 33 g/dl (31.0-36.0); MEAN CORPUSCULAR VOLUME 82 fL (80-96); MONOCYTES # (AUTO) 0.7 K/uL (0.1-1.30); MONOCYTES % (AUTO) 7.5 % (2.0-12.0); NEUTROPHILS # (AUTO) 6.6 K/uL (1.8-8.9); NEUTROPHILS % (AUTO) 69.3 % (43.0-81.0); PLATELET COUNT (AUTO) 252 K/uL (150-450); RED BLOOD CELL COUNT(AUTO) 4.25 MIL/uL (4.5-6.0); WHITE BLOOD COUNT (AUTO) 9.5 K/uL (4.3-11.0)
[2022-06-28 06:06] LABS: ALBUMIN 1.5 g/dL (3.4-5.0); BILIRUBIN,TOTAL 0.5 mg/dL (0.2-1.0); CALCIUM, SERUM 7.5 mg/dL (8.5-10.1); CREATININE 0.8 mg/dL (0.6-1.3); PHOSPHORUS 4.1 mg/dL (2.5-4.9); POTASSIUM 3.6 mmol/L (3.5-5.1); TOTAL PROTEIN, SERUM 5.4 g/dL (6.4-8.2)
--- NOTE | 2022-06-28 06:26 | NUR ---
RN CLOSING NOTES: PATIENT SLEEP IN BED COMFORTABLY, AROUSABLE TO VERBAL STIMULI, BE DIN LOW POSITION CALL LIGHTS WITHIN REACH, NO COMPLAIN OF PAIN AND DISCOMFORT AT THIS TIME, ON ROOM AIR SATURATING WELL, IV LINE AT lac#18 WITH ONGOING 0.9NSS@75ML/HR INFUSING WELL, ON COLOSTOMY BAG, CLEAN AND DRAIN, PATIENT KEPT CLEAN AND DRY ALL NEEDS MET ENDORSE TO INCOMING SHIFT.
--- NOTE | 2022-06-28 07:05 | NUR ---
RN CLOSING NOTES: RECEIVED PATIENT AWAKE IN BED, IMMEDIATELY CHANGED THE SLIGHTLY WET GOWN WITH BLUEPRINT BLOCKER RN. PT HAS NO COMPLAIN OF PAIN AND/OR DISCOMFORT AT THIS TIME, ON ROOM AIR SATURATING WELL, IV LINE AT lac#18, ON COLOSTOMY BAG, WILL CONTINUE TO MONITOR THE PATIENT
--- NOTE | 2022-06-28 08:00 | NUR ---
ZOSYN 3.375G IN IV D5W 50 ML SCHEDULED AT 0800 MISSING. PER PER PHARMACY NEW SCHEDULED OF ZOSYN PRESCRIBED BY Addendum: 06/28/22 at 1106 by LION ROCKWELL JR, RN CHARGE NURSE AWARE
[2022-06-28 08:33] VITALS: BP 136/70
[2022-06-28] MEDS ORDERED: PIPERACILLIN /TAZOBACTAM 3.375 G in IV D5W 50 ML IV SCH (12:00)
[2022-06-28] MEDS: VANCOMYCIN HCL 0.75 GM in IV D5W 250 ML IV SCH ×2 (12:00→12:11)
--- NOTE | 2022-06-28 12:45 | NUR ---
Vanco 0.75 gm in IV 250ml/hr put on hold per per pharmacy awaiting trough level. Charge nurse aware.
--- NOTE | 2022-06-28 15:30 | NUR ---
according to dr. Middleton we need to call dr. Lyons for surgical consult for continuation of care.
--- NOTE | 2022-06-28 16:00 | NUR ---
dr. Lyons informed about pt's readmission for surgical wound infection, awaiting for response.
[2022-06-28 16:47] VITALS: BP 128/73
[2022-06-28] MEDS: DOCUSATE SODIUM LIQ 100 MG/10 ML UDC PO SCH (17:43)
[2022-06-28] MEDS: FERROUS SULFATE (325 MG) 325 MG/TAB TABLET PO SCH (17:43)
[2022-06-28] MEDS: GABAPENTIN 300 MG CAPSULE PO SCH (17:43)
--- NOTE | 2022-06-28 18:20 | NUR ---
dr. Lyons responded that he will contact pt's hospitalist.
--- NOTE | 2022-06-28 19:19 | NUR ---
RN CLOSING NOTES: PATIENT AWAKE IN BED COMFORTABLE, CANADIAN SPEAKING WITH RELATIVES ROUND THE CLOCK ON BEDSIDE RHINOLOGIST. PATIENT WAS KEPT CLEAN AND DRY, SURGICAL INCISION CLEANED WITH NS, PAT DRY AND COVERED WITH GAUZE X3 TODAY NEEDED, COLOSTOMY BAG REPLACED ONCE TODAY, PATIENT GOWN REPLACED 3X NEEDED, KEPT PATIENT KEPT CLEAN, DRY AND SAFE. ALL PATIENT'S NEEDS MET, FAMILY WELL INFORMED, UPDATED AND CONCERNS ANSWERED. WILL BE ENDORSED TO ONCOMING RN FOR JIMMIE.
--- NOTE | 2022-06-28 19:30 | NUR ---
MS STOCK PITCHER INITIAL NOTES Received report from am nurse and seen pt in bed awake and alert Trinidadian Speaking ,Not in any acute distress noted, Respiration even and non-labored in room air. He also with IVF of NS at 75ml/hr infusing on left AC patent and intact. Skin warm and dry to touch . Pt understood some swedish . Re-oriented her where she at and how to use the call light system and at the same time encourage him to used if he needs the nurse and needs some helped.Bed in low and lock in position with side rails X2 up and place call light at reach. will continue monitoring.
[2022-06-28 20:00] VITALS: BP 134/72
[2022-06-28] MEDS: ENOXAPARIN SODIUM 40 MG/0.4 ML DISP.SYRIN SQ SCH (21:11)
--- NOTE | 2022-06-29 00:30 | NUR ---
MS SOTO NOTES ZOSYN IVP BAG HUNG BY ANOTHER NURSE ORDERED. NO ADVERSE REACTION NOTED. COLOSTOMY BAG STILL INTACT NOTED BROWN LIQUID OUTPUT. WILL CONTINUE MONITORING.
[2022-06-29] MEDS: VANCOMYCIN HCL 0.75 GM in IV D5W 250 ML IV SCH ×2 (00:39→12:40)
[2022-06-29] MEDS: ZOSYN IVPB 3.375 G in IV D5W 50ml IV SCH ×3 (05:58→16:55)
--- NOTE | 2022-06-29 06:02 | NUR ---
MS SOTO NOTES , Pt seen awake and alert , morning care rendered and at the same time cleaned the colostomy bag, brown liquid with some particles output noted. dressing changes as well. Pt denies any pain or any discomfort. All due meds given and all needs met. He stable throughout the night . Reposition him on semi fowlers position with side rails X2 up and be in low and lock in position. Kept him warm and comfortable at all times. Hand held to him the call light system. will continue monitoring.
--- NOTE | 2022-06-29 07:10 | NUR ---
MS RN OPEN NOTES Received report from pm nurse and assessed patient in bed . patient is awake and alert Honduran Speaking ,Not in any acute distress noted, Respiration even and non-labored in room air. He also with IVF of NS at 75ml/hr infusing on left AC patent and intact. Skin warm and dry to touch . Pt understood some Divehi . All safety measures are in place ,call light within reach and at the same time encouraged patient to used if he needs the nurse and needs some helped.Bed in low and lock in position with side rails X2 up and will continue monitoring.
[2022-06-29 07:30] VITALS: BP 129/71
--- NOTE | 2022-06-29 07:51 | NUR ---
WOUND CARE CONSULT: PT PRESENTS WITH CLOSED ABDOMINAL INCISION WITH FRED WHICH HAS ERYTHEMA AND PURULENT DRAINAGE AT DISTAL PORTION OF INCISION, PRESENT ON ADMISSION. THERE IS A FUNCTIONING COLOSTOMY WITH PATENT POUCH AND SMALL AMOUNT OF STOOL. RT BUTTOCK AREA OF DISCOLORATION NOTED TO BE PRESENT ON ADMISSION. RECEIVED ORDERS FROM DR AGUILAR FOR ABDOMINAL INCISION AND DISCUSSED WITH NURSING STAFF. ALSO DISCUSSED SKIN PROTECTION RECOMMENDATIONS WITH NURSING STAFF. MD IN AGREEMENT WITH PLAN OF CARE.
[2022-06-29] MEDS: DOCUSATE SODIUM LIQ 100 MG/10 ML UDC PO SCH ×2 (08:30→16:01)
[2022-06-29] MEDS: TAMSULOSIN 0.4 MG CAP.SR.24H PO SCH (08:31)
[2022-06-29] MEDS: GABAPENTIN 300 MG CAPSULE PO SCH ×2 (08:31→16:01)
[2022-06-29] MEDS: DULOXETINE HCL 20 MG CAPSULE.DR PO SCH (08:31)
[2022-06-29] MEDS: FERROUS SULFATE (325 MG) 325 MG/TAB TABLET PO SCH ×2 (08:31→16:01)
[2022-06-29] MEDS: AMLODIPINE BESYLATE 5 MG TABLET PO SCH (08:32)
[2022-06-29] MEDS: BENAZEPRIL HCL 10 MG TABLET PO SCH (08:33)
[2022-06-29] MEDS: METOPROLOL SUCCINATE 25 MG TAB.SR.24H PO SCH (08:33)
[2022-06-29] MEDS ORDERED: Medication Not On Formulary EA (Donepezil HCl 23 MG) PO SCH (09:00)
[2022-06-29] MEDS ORDERED: RIVASTIGMINE TARTRATE 4.6 MG PATCH.TD24 TD SCH (09:00)
--- NOTE | 2022-06-29 09:31 | NUR ---
RN NOTE stitches of thr low abdomen , was removed , larch amount of pus drained , picture with report sent to the dr Middleton. wound swab for culture collected and brought to the lab.order from Dr Corrigan received : to pack the wound with wet to dry kerlix every 12 hr received and done
[2022-06-29] MEDS: RIVASTIGMINE TARTRATE 4.6 MG PATCH.TD24 TD SCH (11:09)
[2022-06-29 12:49] LABS: BILIRUBIN,URINE NEGATIVE (NEGATIVE); COLOR,URINE YELLOW (YELLOW); LEUKOCYTE ESTERASE ,URINE NEGATIVE (NEGATIVE); NITRITE, URINE NEGATIVE (NEGATIVE); PH,URINE 6.5 (5.0-8.0); PROTEIN,URINE NEGATIVE (NEGATIVE); UGLUCOSE NEGATIVE (NEGATIVE); UROBILINOGEN,URINE 0.2 EU/dL (0.2)
[2022-06-29] MEDS: IV NS 0.9% 1,000 ML IV PRN (15:19)
[2022-06-29 16:00] VITALS: BP 121/66
--- NOTE | 2022-06-29 18:35 | NUR ---
RN CLOSING NOTES: PATIENT AWAKE IN BED COMFORTABLE, CUBAN SPEAKING WITH RELATIVES ROUND THE CLOCK ON BEDSIDE SHELF DRIER OPERATOR. PATIENT WAS KEPT CLEAN AND DRY, SURGICAL INCISION OF THE LOW ABDOMEN STICHES WAS REMOVED WITH LARGE AMOUNT OF PUS DRAINAGE REMOVED , WOUND IRRIGATED WITH NS , PAT DRIED , PACKED IWTH WET TO DRY KERLIX COVERED WITH ABD DRESSING , BY ORDER EVERY 12 HR NEXT WOUND CARE AT 9 PM . COLOSTOMY BAG REPLACED ONCE TODAY, PATIENT GOWN REPLACED 3X NEEDED, KEPT PATIENT KEPT CLEAN, DRY AND SAFE. ALL PATIENT'S NEEDS MET, ALL MEDICATIONS WERE ADMINISTERED. WILL BE ENDORSED TO ONCOMING RN FOR JIMMIE.
--- NOTE | 2022-06-29 19:30 | NUR ---
MS RN OPENING NOTE RECEIVED PATIENT FROM AM NURSE; PATIENT IS A/O X 4, ABLE TO MAKE NEEDS KNOWN, KYRGYZ SPEAKING WITH 2 RELATIVES AT BEDSIDE INTERPRETERS; STABLE ON ROOM AIR TOLERATING WELL, BREATHING EVENLY AND NO S/S OF DISTRESS NOTED; WITH IV ACCESS ON LEFT HAND G#18 WITH NORMAL SALINE RUNNING AT 75 ML/HR; NOTED WITH COLOSTOMY BAG DRAINING BROWN LIQUID CONSISTENCY; WITH ABDOMINAL INCISION PACKED WITH DRY AND INTACT DRESSING; NO COMPLAINTS OF PAIN AND DISCOMFORT AT THIS TIME; ENCOURAGED VERBALIZATION OF NEEDS; SAFETY MEASURES IMPLEMENTED, BED IN LOW AND LOCKED POSITION, SIDE RAILS UP X 2, CALL LIGHT AND TABLE WITHIN REACH; WILL CONTINUE TO MONITOR THROUGHOUT SHIFT
[2022-06-29 20:00] VITALS: BP 111/63
[2022-06-29] MEDS: ENOXAPARIN SODIUM 40 MG/0.4 ML DISP.SYRIN SQ SCH (20:13)
--- NOTE | 2022-06-29 21:15 | NUR ---
MS RN NOTE ABDOMINAL WOUND WAS IRRIGATED WITH NORMAL SALINE, PAT DRY AND WET TO DRY DRESSING APPLIED. DRESSING WAS CLEAN, DRY AND INTACT.
[2022-06-30] MEDS: ZOSYN IVPB 3.375 G in IV D5W 50ml IV SCH ×4 (00:11→17:36)
[2022-06-30] MEDS: VANCOMYCIN HCL 0.75 GM in IV D5W 250 ML IV SCH ×2 (00:17→12:46)
[2022-06-30] MEDS: IV NS 0.9% 1,000 ML IV PRN (04:51)
[2022-06-30 07:00] VITALS: BP 109/65
--- NOTE | 2022-06-30 07:00 | NUR ---
MS RN CLOSING NOTE PATIENT IS A/O X 4, ABLE TO MAKE NEEDS KNOWN, HONG KONGER SPEAKING BUT CAN UNDERSTAND LITTLE MARTINIQUAIS; STABLE ON ROOM AIR TOLERATING WELL, BREATHING EVENLY AND NO S/S OF DISTRESS NOTED; WITH IV ACCESS ON LEFT HAND G#18 WITH NORMAL SALINE RUNNING AT 75 ML/HR; WITH COLOSTOMY BAG DRAINING BROWN LIQUID CONSISTENCY; WITH ABDOMINAL INCISION PACKED WITH DRY AND INTACT DRESSING; NO COMPLAINTS OF PAIN AND DISCOMFORT AT THIS TIME; ADMINISTERED MEDICATIONS PRESCRIBED; PATIENT'S NEEDS ATTENDED; MONITORED PATIENT ACCORDINGLY; SAFETY MEASURES IMPLEMENTED, BED IN LOW AND LOCKED POSITION, SIDE RAILS UP X 2, CALL LIGHT AND TABLE WITHIN REACH; WILL ENDORSE TO AM NURSE FOR JIMMIE.
--- NOTE | 2022-06-30 07:03 | NUR ---
PNEUMATIC DEICER INSPECTOR OPENING NOTES RECEIVED PATIENT AWAKE, A/Ox4, IS MOLDOVAN SPEAKING. HE IS ON RA, NO SOB NOTED. IV ACCESS LEFT AC #18G AND IS RUNNING NS AT 75ML/HR. INTACT AND PATENT. COLOSTOMY BAG IN PLACE DRAINING BROWN LIQUID. ON BED REST. SKIN ISSUES ABDOMINAL INCISION DRESSING IN PLACE. NO PAIN OR DISCOMFORT NOTED. SAFETY MEASURES IN PLACE: BED IS LOCK IN LOWEST POSITION, SIDE RAILS X2, CALL LIGHT IN REACH AND HOB ELEVATED. WILL CONTINUE TO MONITOR.
[2022-06-30] MEDS: BENAZEPRIL HCL 10 MG TABLET PO SCH (09:00)
[2022-06-30] MEDS: AMLODIPINE BESYLATE 5 MG TABLET PO SCH (09:00)
[2022-06-30] MEDS: FERROUS SULFATE (325 MG) 325 MG/TAB TABLET PO SCH ×2 (09:11→16:34)
[2022-06-30] MEDS: GABAPENTIN 300 MG CAPSULE PO SCH ×2 (09:11→16:34)
[2022-06-30] MEDS: TAMSULOSIN 0.4 MG CAP.SR.24H PO SCH (09:14)
[2022-06-30] MEDS: DULOXETINE HCL 20 MG CAPSULE.DR PO SCH (09:14)
[2022-06-30] MEDS: METOPROLOL SUCCINATE 25 MG TAB.SR.24H PO SCH (09:14)
[2022-06-30] MEDS: RIVASTIGMINE TARTRATE 4.6 MG PATCH.TD24 TD SCH (09:15)
[2022-06-30] MEDS: DOCUSATE SODIUM LIQ 100 MG/10 ML UDC PO SCH ×2 (09:15→16:34)
[2022-06-30 16:00] VITALS: BP 130/71
--- NOTE | 2022-06-30 18:46 | NUR ---
TILE LAYER HELPER CLOSING NOTES PATIENT AWAKE, A/Ox4, IS BELIZEAN SPEAKING.STABLE ON ROOM AIR. NO SOB NOTED. IV ACCESS LEFT AC #18G AND IS RUNNING NS AT 75ML/HR. INTACT AND PATENT. COLOSTOMY BAG IN PLACE DRAINING BROWN LIQUID. ON BED REST. SKIN ISSUES ABDOMINAL INCISION DRESSING IN PLACE. NO PAIN OR DISCOMFORT NOTED. SAFETY MEASURES MAINTAINED: BED IS LOCK IN LOWEST POSITION, SIDE RAILS X2, CALL LIGHT IN REACH AND HOB ELEVATED. WILL ENDORSE TO NEXT SHIFT ANY JIMMIE.
--- NOTE | 2022-06-30 19:10 | NUR ---
noc rn note Received patient in bed, alert and oriented but ivorian speaking. no s/s of apparent distress on room air. breathing even and unlabored. abdominal incision no bleeding noted with dressing clean, dry and intact. Colostomy intact, with small liquid output. IV ns running @75mls/hr right now on his left hand #20g. Patient is for discharge. statement clerks supervisor @2000 per report. Safety in place-- bed in lowest, locked position, call light within reach, side rails up X3. Will continue with the plan.
--- NOTE | 2022-06-30 20:46 | NUR ---
DISCHARGE NOTE EMT ARRIVED AT EXACTLY 2000 TO SALES MANAGEMENT INTERN PATIENT. PATIENT IN STABLE CONDITION. A/OX4. NO S/S OF APPARENT DISTRESS, BREATHING EVEN AND UNLABORED AT THE TIME. PATIENT COLOSTOMY EMPTIED BEFORE HAND WITH 100 ML OF LIQUID OUTPUT. PATIENT VOIDED BEFORE HAND WELL. ABDOMINAL INCISION INTACT WITH NO S/S OF BLEEDING AND ABDOMINAL PAD IN PLACE ON THE MEDIAL LOWER ABDOMEN. PATIENT HAS 2 IV ACCESS THAT HE IS GETTING DISCHARGE WITH IN THE FACILITY WITH LAC #18 G AND L. HAND #20G, BOTH INTACT AND PATENT. ID BAND DISCARDED. PATIENT LEFT WITH JUST HIS RING AND HID DENTURES, WELL WOUND TREATMENT BAG THAT IS FROM HOSPITAL. PATIENT ACCOMPANIED BY 3 EMT'S VIA Loaded PocketRNEY. GOING TO [facility] RM 323. DISCHARGE PAPER WORKS SIGNED AND GIVEN TO EMT'S. V/S STABLE AND CHARTED FOLLOWS: 130/65, RR20, HR55, TEMP98.2, AND SUTURATION 94% ON ROOM AIR. REPORT WAS GIVEN TO EMMA ODELL THERE AT ARU BY MORNING SHIFT MELI. ARU AWARE OF PATIENT'S CLEAR LIQUID DIET.
== END 2022-06-30 20:41 | DRG 863 ==
LOC: ER 17:02 → MED 21:23
PROVIDERS: ADMIT Nurse Practitioner Acute Care; ATTEND Internal Medicine
DX: T81.49XA Infection following a procedure, other surgical site, initial encounter (principal); L02.211 Cutaneous abscess of abdominal wall; E87.1 Hypo-osmolality and hyponatremia; J98.11 Atelectasis; N17.9 Acute kidney failure, unspecified; Z20.822 Contact with and (suspected) exposure to COVID-19; Y83.8 Other surgical procedures as the cause of abnormal reaction of the patient, or of later complication, without mention of misadventure at the time of the procedure; Y92.009 Unspecified place in unspecified non-institutional (private) residence as the place of occurrence of the external cause; Z85.038 Personal history of other malignant neoplasm of large intestine; Z90.49 Acquired absence of other specified parts of digestive tract; Z93.3 Colostomy status; Z79.01 Long term (current) use of anticoagulants; Z79.899 Other long term (current) drug therapy; D50.9 Iron deficiency anemia, unspecified; D63.8 Anemia in other chronic diseases classified elsewhere; R74.01 Elevation of levels of liver transaminase levels; E88.09 Other disorders of plasma-protein metabolism, not elsewhere classified; I70.0 Atherosclerosis of aorta; R73.9 Hyperglycemia, unspecified; N40.0 Benign prostatic hyperplasia without lower urinary tract symptoms; J43.9 Emphysema, unspecified; N28.1 Cyst of kidney, acquired; Z87.19 Personal history of other diseases of the digestive system
CPT/HCPCS: 36415; 71045-TC; 80048-TC; 80053-TC; 80076-TC; 80202-TC; 83605-TC; 83735-TC; 84100-TC; 84484-TC; 85025-TC; 85730-TC; 87040-TC; 87081-TC; 87086-TC; 97112-TC; 97116-TC; 97530-TC; A4223; A6253; A6403; A6407; C9803; G0378; J1650; J2543; J3370; J7030; J7060; J7120; Q9967